=== PATIENT | male | born 1970 | race Caucasian/White ===

== ENCOUNTER 2024-03-01 10:22 | Emergency (ER) | payer MEDICAID ==
[~2024-03-01] VITALS: Ht 185.4 cm; Wt 195.0 kg
[2024-03-01 10:25] VITALS: TEMP 98.8
[2024-03-01] MEDS: normal saline 1000ml 1,000 ML IV ONE ×3 (11:15→12:46)
[2024-03-01 11:26] LABS: BASOPHILS # (AUTO) 0.1 X10'3 (0-0.2); BASOPHILS % (AUTO) 1.4 % (0-1); EOSINOPHILS # (AUTO) 0.1 X10'3 (0-0.9); EOSINOPHILS % (AUTO) 2.6 % (0-6); HEMATOCRIT 45.5 % (42.0-52.0); HEMOGLOBIN 15.8 g/dl (14.0-17.9); LYMPHOCYTES # (AUTO) 1.8 X10'3 (1.1-4.8); LYMPHOCYTES % (AUTO) 33.5 % (21-51); MEAN CORPUSCULAR HEMOGLOBIN 33.4 PG (27.0-31.0); MEAN CORPUSCULAR HGB CONC 34.6 g/dL (33.0-36.5); MEAN CORPUSCULAR VOLUME 96.4 FL (78-98); MEAN PLATELET VOLUME 7.4 FL (7.4-10.4); MONOCYTES # (AUTO) 0.6 X10'3 (0-0.9); NEUTROPHILS # (AUTO) 2.7 X10'3 (1.8-7.7); NEUTROPHILS % (AUTO) 51.5 % (42-75); PLATELET COUNT 270 X10'3 (140-440); RED BLOOD COUNT 4.72 X10'6 (4.70-6.10); RED CELL DISTRIBUTION WIDTH 14.6 % (11.5-14.5); WHITE BLOOD COUNT 5.2 X10'3 (4.5-11.0)
[2024-03-01 11:48] LABS: ALANINE AMINOTRANSFERASE 70 U/L (12-78); ALBUMIN 3.6 G/DL (3.4-5.0); ALBUMIN/GLOBULIN RATIO 0.8 (1.1-1.5); ALKALINE PHOSPHATASE 93 IU/L (46-116); ANION GAP 11 (8-16); ASPARTATE AMINO TRANSFERASE 63 U/L (10-37); BILIRUBIN,TOTAL 0.7 MG/DL (0.1-1.0); BLOOD UREA NITROGEN 16 MG/DL (7-18); BUN/CREATININE RATIO 20.3 (10.0-20.0); CHLORIDE 98 MMOL/L (99-107); CREATININE 0.79 MG/DL (0.60-1.10); GLUCOSE 146 MG/DL (70-104); POTASSIUM 3.6 MMOL/L (3.5-5.1); SODIUM 135 MMOL/L (135-145); TOTAL CARBON DIOXIDE 25.7 MMOL/L (24-32); TOTAL PROTEIN 8.3 G/DL (6.4-8.2); eCRCL 119 ML/MIN; eGFR > 90 ML/MIN
[2024-03-01 12:00] LABS: C-REACTIVE PROTEIN 0.13 MG/DL (0.0-0.5)
[2024-03-01 12:01] LABS: PRO BRAIN NATRIURETIC PEPTIDE < 30 PG/ML (0-125)
[2024-03-01] MEDS: ondansetron/PF 4mg/2ml inj IV ONE (12:39)
[2024-03-01 13:28] LABS: BILIRUBIN,URINE NEGATIVE (Neg); CLARITY,URINE CLEAR (Clear); COLOR,URINE YELLOW (Yellow); GLUCOSE, URINE NEGATIVE (Neg); KETONES,URINE NEGATIVE (Neg); LEUKOCYTE ESTERASE ,URINE NEGATIVE (Neg); NITRITES, URINE NEGATIVE (Neg); OCCULT BLOOD,URINE NEGATIVE (Neg); PH,URINE 6.5 (4.8-8.0); PROTEIN,URINE NEGATIVE (Neg); UROBILINOGEN,URINE 0.2 E.U/dL (0.2-1.0)
[2024-03-01 13:43] LABS: UA COLLECTION TYPE CLN CATCH MIDSTREAM
[2024-03-01] MEDS ORDERED: ONDA-245 PO (13:47)
[2024-03-01 14:00] VITALS: BP 159/106; PULSE 91; RESP 14; O2SAT 99
== END 2024-03-01 14:02 | disposition home or self-care (01) ==
LOC: ER 10:22
DX: B34.9 Viral infection, unspecified (principal); R42 Dizziness and giddiness; R11.0 Nausea; H53.8 Other visual disturbances; Z20.822 Contact with and (suspected) exposure to COVID-19
CPT/HCPCS: 36415; 71045; 80053; 81003; 83605; 83880; 84145; 84484; 85025; 86140; 87040; 87502; 87503; 87811; 93005; 96360; 96361; 99285; J7030

== ENCOUNTER 2024-06-16 15:44 | Emergency (ER) | payer MEDICAID ==
[~2024-06-16] VITALS: Ht 185.4 cm; Wt 88.5 kg
[~2024-06-16 15:44] MED LIST: ONDA-245 PO
[2024-06-16] MEDS ORDERED: AMOX-580 PO (17:15)
[2024-06-16 17:28] VITALS: BP 132/82; PULSE 63; RESP 16; TEMP 99.2; O2SAT 98
== END 2024-06-16 17:30 | disposition home or self-care (01) ==
LOC: ER 15:45
DX: K02.9 Dental caries, unspecified (principal); K04.7 Periapical abscess without sinus; Z79.899 Other long term (current) drug therapy
CPT/HCPCS: 99283

== ENCOUNTER 2024-12-08 19:36 | Emergency (ER) | payer MEDICAID ==
[~2024-12-08] VITALS: Ht 188 cm; Wt 96.0 kg
[2024-12-08 19:57] VITALS: TEMP 98.4
--- NOTE | 2024-12-08 20:13 | Physician Documentation ---
History of Present Illness Chief Complaint: Abdominal Pain w/vomiting Stated Complaint: THROWING UP BLOOD OK to notify your PCP?: Yes Primary Medical Doctor: TERESA BARCLAY Mode of Arrival: POV Exam Limitations: no limitations HPI 53-year-old male presents with abdominal pain and distention with vomiting. He attempted to take antacids and water pills with no relief. He reports that he is unable to take a deep breath due to his abdominal distention. He denies having any diarrhea. He has also been having some sinus pain and congestion. Chief Complaint: Abdominal pain, nausea and vomiting Caveat: None Independent Historians: None History of Present Illness: Patient is a 53-year-old man who comes in complaining of intermittent abdominal pain and distention for one month. He has also had intermittent vomiting. Patient's abdominal pain usually resolves with Tums. Over the last several days the Tums no longer helps and actually makes it worse. He has also been trying milk of magnesia. Pain has gotten worse and that is why he comes in tonight. Patient has not seen his primary care doctor for this who resides in [place]. Patient is here in [place] because his mother and needed assistance. Patient states that his urine has been very dark and that he has been trying to drink a lot of fluids. Review of systems: All systems were reviewed and are negative except for what is indicated in the history of present illness. Past Medical History: None Past Surgical History: None Social History: Drinks a six pack of alcohol a day but has not drank for two days, no other drug use. Smokes tobacco. Medications: Reviewed as documented Nursing Notes Allergies: Reviewed as documented in Nursing Notes Medication Reconciliation Allergies: Coded Allergies: No Known Allergies (Unverified , 12/08/24) Scheduled PRN Ondansetron 8mg ODT (Ondansetron Odt), 1 TAB PO TID PRN for nausea/vomiting Review of Systems All Other Systems at this time: Reviewed and Negative ROS Patient denies any other acute symptoms other than above. All other systems are negative Physical Exam Vital Signs: RN Vital Signs have been reviewed: Yes, Temperature: 98.4, Source: Temporal, Heart Rate: 100, Respiratory Rate: 16, BP: 120/81, Pulse Oximetry: 97, Weight: 95.950 Pulse Oximetry Reflects: adequate oxygenation Physical Exam General Appearance: No distress HEENT: Normal OP, moist oral mucosa, PERRL, EOMI Neck: supple, normal ROM, trachea midline Pulmonary: No respiratory distress, CTA, BS equal Cardiac: RRR, no murmur, rub or gallop, GI: Distended, firm but soft, nontender, dull to percussion, normal bowel sounds, no guarding, no rebound Extremities: normal ROM, no swelling, non-tender Skin: intact, dry, warm, no rashes Neuro: AAOx3, speech is clear, no focal motor weakness Psych: normal affect, good eye contact, no apparent hallucination, normal speech Progress Results/Orders Results/Orders Vital Signs 12/08/24 19:57 Temp 98.4 Pulse 100 Resp 16 B/P (MAP) 120/81 Pulse Ox 97 Medical Decision Making Findings Differential diagnosis includes but is not limited to: Hepatitis, liver failure, gastritis, peptic ulcer, gastric ulcer, duodenitis, bowel obstruction, ascites Chest x-ray, single view, indication: Independent interpretation: Abdominal ultrasound, indication: Abdominal distention Impression: Echogenic liver parenchyma. This may be secondary to steatosis or other diffuse hepatic process. Correlate clinically and with liver function tests. Small amount of ascites. Laboratory data independent interpretation: CBC: Mild leukocytosis of 13. Mild anemia hemoglobin 13.7 CMP: Sodium 133, potassium 3.4, total bilirubin elevated at 3.8, elevated AST 188, normal ALT 40, elevated alk-phos 244 Emergency department course/medical decision-making: Patient presents with abdominal distention, abdominal discomfort and nausea and vomiting. Patient isn't vomiting here. Patient will be given Zofran 4 mg. Patient is thought to have some ascites on exam. This is confirmed with ultrasound. No evidence of acute cholecystitis or GI bleed. Patient does have a mildly elevated lipase of 343. Patient has elevated LFTs consistent with hepatitis. This may be related to his alcohol and hepatitis-C. Patient does not have any admission criteria. Patient does not appear to have any acute medical or surgical emergency. Patient will be referred to his primary care doctor to be referred to a nerve specialist or specialist for his hepatitis. Patient is stable for discharge. All of the above and test results and follow up plan reviewed with the patient. Departure Time of Disposition: 00:18 Disposition: 01 HOME / SELF CARE / HOMELESS Impression: Primary Impression: Hepatitis Additional Impression: Ascites Qualified Codes: R18.8 - Other ascites Condition: Stable Additional Instructions: RECOMMEND YOU FOLLOW UP WITH YOUR PRIMARY CARE DOCTOR IN [place]. YOU WILL NEED REFERRAL TO A SPECIALIST FOR YOUR HEPATITIS. RECOMMEND DISCONTINUING ALL ALCOHOL USE. Prescriptions ONDANSETRON ODT 4mg tablet (ONDANSETRON ODT) 4 Mg Tab.rapdis 1 TAB PO TID PRN for nausea/vomiting, #20 TAB 0 Refills Prov: ALEX RG MD 12/09/24 Education Educated: Patient Educated regarding: diagnosis, treatment, need for follow up Additional Comment Medical Screen Exam This patient recieved a medical screening examination. After reviewing the i ndividual's medical complaints with presenting symptoms and performing an appropriate physical examination, it was determined that no immediate life- threatening emergency medical condition is present. This individual is also not a women having contractions. Signature Scribe Signature: No scribe Attestation: No scribe GLENN MENDOZAP Dec 08, 2024 20:13 ALEX RG MD Dec 08, 2024 21:22
[2024-12-08 21:47] LABS: MEAN PLATELET VOLUME 8.4 FL (7.4-10.4); RED CELL DISTRIBUTION WIDTH 16.4 % (11.5-14.5)
[2024-12-08 22:12] LABS: CREATININE 0.65 MG/DL (0.60-1.10); TOTAL CARBON DIOXIDE 25.9 MMOL/L (24-32); eCRCL 149 ML/MIN; eGFR > 90 ML/MIN
[2024-12-08 23:47] LABS: PRO BRAIN NATRIURETIC PEPTIDE 128 PG/ML (0-125)
--- NOTE | 2024-12-08 23:51 | RADIOLOGY REPORT ---
ULTRASOUND ABDOMEN, LIMITED RIGHT UPPER QUADRANT: REASON FOR EXAM: abdominal distention, pain TECHNIQUE: Real-time sector scans in the transverse and longitudinal planes were obtained through th e right upper quadrant of the abdomen. FINDINGS: The liver is echogenic. The portal vein demonstrates hepatopetal flow. There is no intrahe patic nor extrahepatic biliary ductal dilatation. The common bile duct measures 6 mm. No gallstones or sludge are identified. There is no gallbladder wall thickening nor pericholecystic fluid. There is no sonographic Alcazar's sign. The visualized portion of the pancreas is unremarkable. The right kidney measures 12.2 cm. No hydronephrosis or nephrolithiasis is identified. There is no evidence of right renal mass or cyst. The visualized portions of the abdominal aorta demonstrate no evidence of aneurysmal dilatation. The visualized inferior vena cava is unremarkable. There is a small amount of perihepatic free fluid. IMPRESSION: Echogenic liver parenchyma. This may be secondary to steatosis or other diffuse hepatic process. Co rrelate clinically and with liver function tests. Small amount of ascites.
[2024-12-09] MEDS ORDERED: ONDA-243 PO (00:20)
[2024-12-09] MEDS ORDERED: ondansetron/PF 4mg/2ml inj IV ONE (00:20)
[2024-12-09 00:25] VITALS: BP 134/85; PULSE 86; RESP 16; O2SAT 97
== END 2024-12-09 00:27 | disposition home or self-care (01) ==
LOC: ER 19:36
DX: K75.9 Inflammatory liver disease, unspecified (principal); R18.8 Other ascites
CPT/HCPCS: 36415; 76700; 80053; 83690; 83880; 85025; 99285

== ENCOUNTER 2025-03-17 16:50 | Emergency (ER) | payer MEDICAID ==
[~2025-03-17] VITALS: Ht 185.4 cm; Wt 89.4 kg
[~2025-03-17 16:50] MED LIST changes: +ONDA-243 PO
[2025-03-17 17:33] LABS: UA COLLECTION TYPE CLN CATCH MIDSTREAM
[2025-03-17 17:37] LABS: COARSE GRANULAR CAST 0-3 /LPF (NEGATIVE); MUCUS STRANDS MANY /LPF (Neg); SQUAMOUS EPITHELIAL CELL,UR FEW /LPF (FEW)
[2025-03-17 17:38] LABS: FINE GRANULAR CAST 0-3 /LPF (NEGATIVE)
[2025-03-17 17:40] LABS: MEAN PLATELET VOLUME 7.9 FL (7.4-10.4); RED CELL DISTRIBUTION WIDTH 17.2 % (11.5-14.5)
[2025-03-17 17:51] LABS: CREATININE 0.83 MG/DL (0.60-1.10); TOTAL CARBON DIOXIDE 28.3 MMOL/L (24-32); eCRCL 112 ML/MIN; eGFR > 90 ML/MIN
[2025-03-17] MEDS ORDERED: iohexol 300mg/ml 100ml inj. ONE (21:07)
--- NOTE | 2025-03-17 21:32 | RADIOLOGY REPORT ---
Exam: CT CT ABDOMEN PELVIS W/ IV CONTRAST History: abd pain Comparison Study: None TECHNIQUE: A digital inside sales territory manager image was obtained. During the uneventful, intravenous administration of contrast material, multislice data acquisition was obtained through the abdomen and pelvis. The data set was subsequently reconstructed into multiplanar reformats. RADIATION DOSE: CTDI vol 28.29 mGy. DLP 1652.69 mGy.cm Findings: Lungs: Incompletely assessed moderate left and small right pleural effusion with adjacent opacity. Liver: Unremarkable. Spleen: Unremarkable. Pancreas: Unremarkable. Gallbladder: Distended gallbladder with suggestion of mild wall thickening. Common bile duct is dilated up to 15 mm. Adrenals: Unremarkable Kidneys: Unremarkable. Pelvic Viscera: Unremarkable. Vasculature: Atherosclerotic aortoiliac calcification. Retroperitoneum: Mild retroperitoneal adenopathy measuring up to 14 mm short axis. Moderate abdominopelvic ascites. Mild stranding/ nodularity within the mesentery. Bowel: No bowel obstruction. Musculoskeletal: Unremarkable. Soft tissues: Unremarkable Impression: 1. Distended gallbladder with dilated common bile duct. MRCP is suggested in further assessment. 2. Nonspecific adenopathy as above, neoplastic etiologies cannot be excluded. 3. Moderate abdominopelvic ascites. Incompletely assessed moderate left and small right pleural effusion with adjacent opacity. 4. Stranding/nodularity within the mesentery, possibly on the basis of fluid overload, developing peritoneal carcinomatosis cannot be excluded.
[2025-03-17 22:35] VITALS: BP 121/95; PULSE 92; RESP 18; TEMP 98.1; O2SAT 99
--- NOTE | 2025-03-17 22:51 | Physician Documentation ---
History of Present Illness Chief Complaint: Abdominal Pain Stated Complaint: SOB/ABD PAIN Time Seen by MD: 19:49 OK to notify your PCP?: Yes Primary Medical Doctor: TERESA Arias 54-year-old male who reports to the emergency department for evaluation of abdominal pain x3 days. Patient reports that his abdominal pain has been accompanied by abdominal distention nausea and vomiting x3 days. Patient reports he has been unable to even bend over to tie his shoes during that time. Patient reports he has been unable to keep down fluids or food in the last 3 days. Patient reports that he has a history of alcoholism recently relapsed for brief period of time just prior to his abdomen becoming distended and developing the nausea vomiting diarrhea. Patient denies any fever chills chest pain shortness of breath lightheadedness or any other symptoms at this time. Medication Reconciliation Allergies: Coded Allergies: No Known Allergies (Unverified , 12/08/24) Scheduled PRN ONDANSETRON ODT 4mg tablet (Ondansetron Odt), 1 TAB PO TID PRN for na usea/vomiting Ondansetron 8mg ODT (Ondansetron Odt), 1 TAB PO TID PRN for nausea/vomiting Past Medical History Smoking Status: Current every day smoker Physical Exam Vital Signs: Temperature: 98.1, Source: Oral, Heart Rate: 92, Respiratory Rate: 18, BP: 121/95, Pulse Oximetry: 99, Weight: 89.400 Oxygen Flow Rate: 0 Progress Results/Orders Results/Orders Completed Orders - [facility] Iohexol 300mg/Ml 100ml Inj. (Omnipaque-3 (03/17/25 21:07) Vital Signs 03/17/25 03/17/25 03/17/25 03/17/25 16:56 20:30 20:50 21:29 Temp 98.2 Pulse 112 89 88 Resp 16 18 18 16 B/P (MAP) 132/87 105/77 (86) 107/70 (82) Pulse Ox 95 98 98 O2 Flow Rate 0 03/17/25 22:35 Temp 98.1 Pulse 92 Resp 18 B/P (MAP) 121/95 Pulse Ox 99 Laboratory Tests Test 03/17/25 17:00 03/17/25 17:28 Urine Specimen Description Cln catch midstream Urine Color [place] Urine Clarity Cloudy Urine pH Urine Specific [place] Urine Protein Urine Glucose (UA) Urine Ketones Urine Occult Blood Urine Nitrite Urine Bilirubin Urine Urobilinogen Urine Leukocyte Esterase Urine RBC 50-100 Urine WBC 5-10 H Urine Squamous Epithelial Cells Few Urine Bacteria Few Urine Fine Granular Casts 0-3 Urine Coarse Granular Casts 0-3 Urine Mucus Many Urine Culture Indicated Indicated Volume Urine Centrifuged 10 ml Urine Comment See note White Blood Count 9.1 Red Blood Count 3.30 L Hemoglobin 11.7 L Hematocrit 33.6 L Mean Corpuscular Volume 101.8 H Mean Corpuscular Hemoglobin 35.5 H Mean Corpuscular Hemoglobin Concent 34.9 Red Cell Distribution Width 17.2 H Platelet Count 144 Mean Platelet Volume 7.9 Neutrophils (%) (Auto) 66.4 Lymphocytes (%) (Auto) 25.4 Monocytes (%) (Auto) 6.6 Eosinophils (%) (Auto) 0.6 Basophils (%) (Auto) 1.0 Neutrophils # (Auto) 6.0 Lymphocytes # (Auto) 2.3 Monocytes # (Auto) 0.6 Eosinophils # (Auto) 0.1 Basophils # (Auto) 0.1 CBC Comment Sodium Level 138 Potassium Level 3.6 Chloride Level 104 Carbon Dioxide Level 28.3 Anion Gap 6 L Blood Urea Nitrogen 5 L Creatinine 0.83 Estimated GFR/1.73 m2 > 90 BUN/Creatinine Ratio 6.0 L Glucose Level 110 H Calcium Level 8.0 L Total Bilirubin 7.7 H Aspartate Amino Transf (AST/SGOT) 101 H Alanine Aminotransferase (ALT/SGPT) 27 Alkaline Phosphatase 160 H Total Protein 8.1 Albumin 1.8 L Globulin 6.3 H Albumin/Globulin Ratio 0.3 L Lipase 60 Chemistry Comments Microbiology Date/Time Source Procedure Growth Status 03/17/25 17:38 Urine Clean Catch Midstream Urine Culture - Preliminary Culture received. Resulted Medical Decision Making Additional information obtaine: other Findings 54-year-old male with a history of alcohol use disorder presented with 3 days of worsening abdominal pain, distention, nausea, and vomiting, unable to tolerate oral intake. No fever, chills, chest pain, or shortness of breath. CT abdomen/pelvis findings: Distended gallbladder with dilated common bile duct, suggestive of possible acute cholecystitis with biliary obstruction. Moderate abdominopelvic ascites. Mild retroperitoneal adenopathy (up to 14 mm). Mild stranding/nodularity within the mesentery. No bowel obstruction. Laboratory values consistent with decompensated liver disease and possible biliary obstruction. Assessment: Acute cholecystitis with possible common bile duct obstruction, a surgical emergency requiring prompt intervention. Moderate ascites, likely secondary to decompensated cirrhosis; diagnostic paracentesis indicated to rule out spontaneous bacterial peritonitis. Retroperitoneal adenopathy and mesenteric changes; neoplastic etiologies cannot be excluded. Interventions discussed: Urgent surgical and gastroenterology consultation for cholecystitis with biliary obstruction and decompensated cirrhosis. NPO status, IV fluids, empiric antibiotics, and pain control for acute cholecystitis. Diagnostic paracentesis for new-onset or symptomatic ascites. Alcohol cessation and referral to addiction services. Education regarding warning signs: fever, worsening pain, jaundice, confusion, GI bleeding, or inability to tolerate fluids/food. Risks of leaving AMA: High risk for rapid clinical deterioration, including sepsis, biliary peritonitis, hepatic encephalopathy, renal failure, and if acute cholecystitis with obstruction and decompensated cirrhosis are not promptly treated. Patient was counseled extensively regarding the need for urgent intervention, the risks of non-treatment, and the importance of close follow-up. Patient left against medical advice prior to the implementation of any discussed interventions. Strongly advised to seek immediate care for any worsening symptoms. Outpatient follow-up with primary care, gastroenterology, and surgery is essential. Patient verbalized understanding of risks and recommendations, but elected to leave AMA. Patient's laboratory values also show findings for a UTI at this time. Discussed this with patient. Patient leaving AMA prior to any interventions being implemented. Discussed the risks of the patient leaving AMA. Reports that he understands the risks at this time. Differential Dx:Considerations: AAA, Aortic dissection, Appendicitis, Cholangitis, Cholelithasis, Constipation, Diverticular disease, Gastritis/PUD, Gastroenteritis, GI hemorrhage, Inflammatory BD, Ischemic bowel, Pancreatitis, Urinary tract infection, Other Departure Disposition: 07 LEFT AGAINST MEDICAL ADVICE Impression: Primary Impression: Abdominal pain Condition: Stable Discharge Instructions: Abdominal Pain (Nonspecific) Additional Instructions: You are leaving the hospital before your medical care is complete. You have been diagnosed with the following conditions that require urgent medical attention: Acute abdominal pain with findings concerning for possible cholecystitis (infection/inflammation of the gallbladder) and obstruction of the common bile duct. Moderate ascites (fluid buildup in the abdomen), likely related to liver disease. History of alcohol use disorder with recent relapse, which increases your risk for complications. What you need to know: These conditions can be life-threatening if not treated promptly. Possible complications include severe infection (such as sepsis or spontaneous bacterial peritonitis), worsening liver failure, kidney injury, confusion, bleeding, and even . You may need urgent surgery or procedures to treat these problems. Leaving the hospital now means you are at higher risk for serious complications and readmission. What to watch for: Return to the emergency department immediately if you develop: Fever or chills Worsening abdominal pain or swelling Vomiting that will not stop Yellowing of the skin or eyes (jaundice) Confusion or trouble thinking clearly Blood in your stool or vomit Difficulty breathing What you can do: Try to avoid alcohol and follow a low-sodium diet if possible. If you are able, arrange follow-up with your primary care doctor, a liver specialist (child support officer), and a surgeon as soon as possible. If you were prescribed any medications, take them as directed. If you have questions or need help, contact your healthcare provider or return to the hospital. Education and understanding: The risks of leaving AMA, including the possibility of rapid worsening and , have been explained to you in detail. You have been given the opportunity to ask questions and have indicated that you understand these risks. You are making the decision to leave the hospital at this time. Respect and support: Your decision is respected, and you will not be judged or stigmatized for leaving AMA. You are encouraged to seek care if your symptoms worsen or if you change your mind. Please keep this information and bring it with you if you seek care elsewhere. Referrals: NO PRIMARY CARE PROVIDER (PCP) Education Educated: Patient Educated regarding: diagnosis, treatment, need for follow up Signature Scribe Signature: A Attestation: Scribed for [facility] by NOHEMI Hernandez . 03/17/25 22:59 [facility] Mar 17, 2025 22:51
[2025-03-18] MEDS ORDERED: BUPR128S IM (17:21)
== END 2025-03-17 23:04 | disposition left against medical advice (07) ==
LOC: ER 16:51
DX: R10.9 Unspecified abdominal pain (principal); F17.200 Nicotine dependence, unspecified, uncomplicated; F10.20 Alcohol dependence, uncomplicated; Y90.9 Presence of alcohol in blood, level not specified
CPT/HCPCS: 36415; 74177; 80053; 81001; 83690; 85025; 87088; 99285; Q9967

== ENCOUNTER 2025-03-18 11:35 | Inpatient (IN) | payer MEDICAID ==
[~2025-03-18] VITALS: Ht 185.4 cm; Wt 90.9 kg
[2025-03-18 12:16] LABS: LEUKOCYTE ESTERASE ,URINE NEGATIVE (Neg); OCCULT BLOOD,URINE LARGE (Neg); UA COLLECTION TYPE CLN CATCH MIDSTREAM
[2025-03-18 12:17] LABS: NITRITES, URINE NEGATIVE (Neg)
[2025-03-18 12:24] LABS: COARSE GRANULAR CAST 0-3 /LPF (NEGATIVE); FINE GRANULAR CAST 0-3 /LPF (NEGATIVE); MUCUS STRANDS NONE SEEN /LPF (Neg); SQUAMOUS EPITHELIAL CELL,UR NONE SEEN /LPF (FEW)
[2025-03-18 12:35] LABS: CREATININE 0.76 MG/DL (0.60-1.10); TOTAL CARBON DIOXIDE 25.4 MMOL/L (24-32); eCRCL 123 ML/MIN; eGFR > 90 ML/MIN
[2025-03-18 12:58] LABS: MEAN PLATELET VOLUME 8.1 FL (7.4-10.4); RED CELL DISTRIBUTION WIDTH 17.0 % (11.5-14.5)
--- NOTE | 2025-03-18 13:31 | Physician Documentation ---
History of Present Illness Chief Complaint: Abdominal Pain Stated Complaint: ABD PAIN Time Seen by MD: 12:52 Primary Medical Doctor: TERESA BARCLAY [facility] 54-year-old male patient who was seen here in the ED yesterday for three days of abdominal pain returns after leaving against medical advice yesterday he has that he left yesterday because they were going to transfer him to another hospit al out of the area. he complains of abdominal distention nausea vomiting x3 days. Patient does have a history of alcoholism and complains of a distended abdomen. States he has not been diagnosed with liver failure or ever had a paracentesis. Yesterday CT indicated that Distended gallbladder with dilated common bile duct. MRCP is suggested in further assessment. Day of Onset: Mar 18, 2025 Medication Reconciliation Allergies: Coded Allergies: No Known Allergies (Unverified , 12/08/24) Miscellaneous Medications Buprenorphine (Brixadi), 128 IM, (Reported) Discontinued Medications ONDANSETRON ODT 4mg tablet (Ondansetron Odt), 1 TAB PO TID PRN for nausea/vomiting Discontinued Reason: patient no longer taking Ondansetron 8mg ODT (Ondansetron Odt), 1 TAB PO TID PRN for nausea/vomiting Discontinued Reason: patient no longer taking Review of Systems All Other Systems at this time: Reviewed and Negative ROS As stated above in the HPI, otherwise all systems are reviewed and negative. Physical Exam Vital Signs: Temperature: 99.4, Source: Oral, Heart Rate: 126, Respiratory Rate: 20, BP: 110/73, Pulse Oximetry: 96, Weight: 90.910 Oxygen Flow Rate: 0 Physical Exam General: Alert, no apparent distress. Gastrointestinal: Soft, tender and distended Extremities: Normal range of motion, no deformity. Neurologic: Oriented x4. Psychiatric: Normal mood and affect. Skin: Normal color, warm and dry. No edema, no ecchymosis. Progress Results/Orders Results/Orders Vital Signs 03/18/25 11:37 Temp 99.4 Pulse 126 Resp 20 B/P (MAP) 110/73 Pulse Ox 96 O2 Flow Rate 0 Laboratory Tests Test 03/18/25 11:14 03/18/25 12:10 03/18/25 12:33 Urine Specimen Description Cln catch midstream Urine Color [place] Urine Clarity Slightly cloudy Urine pH 6.5 Urine Specific [place] 1.020 Urine Protein >=300 H Urine Glucose (UA) 100 H Urine Ketones 15 H Urine Occult Blood Large H Urine Nitrite Negative Urine Bilirubin Large Urine Urobilinogen >=8.0 H Urine Leukocyte Esterase Negative Urine RBC 20-50 Urine WBC 5-10 H Urine Squamous Epithelial Cells None seen Urine Bacteria Few Urine Fine Granular Casts 0-3 Urine Coarse Granular Casts 0-3 Urine Mucus None seen Urine Culture Indicated Indicated Volume Urine Centrifuged 2 ml Urine Comment Low volume CBC Comment Sodium Level 138 Potassium Level 3.8 Chloride Level 104 Carbon Dioxide Level 25.4 Anion Gap 9 Blood Urea Nitrogen 6 L Creatinine 0.76 Estimated GFR/1.73 m2 > 90 BUN/Creatinine Ratio 7.9 L Glucose Level 97 Calcium Level 7.8 L Total Bilirubin 4.7 H Aspartate Amino Transf (AST/SGOT) 86 H Alanine Aminotransferase (ALT/SGPT) 24 Alkaline Phosphatase 173 H Total Protein 7.7 Albumin 1.8 L Globulin 5.9 H Albumin/Globulin Ratio 0.3 L Lipase 70 Chemistry Comments White Blood Count 6.6 Red Blood Count 2.76 L Hemoglobin 9.9 L Hematocrit 28.4 L Mean Corpuscular Volume 103.1 H Mean Corpuscular Hemoglobin 35.8 H Mean Corpuscular Hemoglobin Concent 34.7 Red Cell Distribution Width 17.0 H Platelet Count 113 L Mean Platelet Volume 8.1 Neutrophils (%) (Auto) 68.7 Lymphocytes (%) (Auto) 19.0 L Monocytes (%) (Auto) 9.5 Eosinophils (%) (Auto) 1.5 Basophils (%) (Auto) 1.3 H Neutrophils # (Auto) 4.5 Lymphocytes # (Auto) 1.3 Monocytes # (Auto) 0.6 Eosinophils # (Auto) 0.1 Basophils # (Auto) 0.1 Microbiology Date/Time Source Procedure Growth Status 03/18/25 12:26 Urine Clean Catch Midstream Urine Culture - Preliminary Culture received. Resulted Medical Decision Making Additional information obtaine: N/A Findings Patient has been sitting in the ER for an extended period of time. This is primarily due to the MRCP not being completed. It is 18 12 currently hand the MRCP was ordered just after 1300 today. Differential Dx:Considerations: Cholelithasis, Esophageal rupture, Gastroenteritis, Pancreatitis, Urinary tract infection Departure Disposition: HOME / SELF CARE / HOMELESS Impression: Primary Impression: Abdominal pain Referrals: NO PRIMARY CARE PROVIDER (PCP) Signature Scribe Signature: f Attestation: Scribed for [facility] Asst by New Hickey NP . 03/18/25 14:00 NEW LAINEZ NP Mar 18, 2025 13:31
[2025-03-18] MEDS ORDERED: BUPR128S IM (17:21)
--- NOTE | 2025-03-18 20:30 | RADIOLOGY REPORT ---
CLINICAL HISTORY: biliary obstruction TECHNIQUE: MRI and MRCP of the abdomen was performed without gadolinium. 3D reconstructed images were created under concurrent radiologist supervision and archived on the PACS system. COMPARISON: CT CT ABDOMEN PELVIS W/ IV CONTRAST on DOS: 03/17/25, US ULTRASOUND OF ABDOMEN on DOS: 12/08/24 FINDINGS: Evaluation is clearly limited due to image degradation secondary to patient motion. The spleen, adrenal glands, liver, and pancreas are grossly unremarkable. Gallbladder is distended with moderate wall thickening. The CBD is dilated, measuring 8 mm. No definite intraductal filling defects to suggest a stone is seen. There is a moderate amount of ascites. The abdominal is normal course and caliber. No enlarged lymph node is seen. There are small to moderate left and small right pleural effusions. IMPRESSION: Clearly limited exam. Distended bladder with moderate wall thickening. Dilated 8 mm common duct. No definite intraductal filling defects to suggest a stone. Moderate ascites. Small to moderate left and small right pleural effusion
[2025-03-19] VITALS (8 sets, daily range): BP systolic 108–126; BP diastolic 64–73; PULSE 79–87; RESP 12–18; TEMP 97–98.3; O2SAT 91–94
[2025-03-19 08:24] LABS: MEAN PLATELET VOLUME 7.9 FL (7.4-10.4); RED CELL DISTRIBUTION WIDTH 17.0 % (11.5-14.5)
[2025-03-19 08:26] LABS: CREATININE 0.70 MG/DL (0.60-1.10); TOTAL CARBON DIOXIDE 31.0 MMOL/L (24-32); eCRCL 133 ML/MIN; eGFR > 90 ML/MIN
[2025-03-19] MEDS ORDERED: ondansetron/PF 4mg/2ml inj IV PRN (13:30)
[2025-03-19] MEDS ORDERED: magnesium sulf-water 4G/100mL 100 ML IV PRN (13:30)
[2025-03-19] MEDS ORDERED: potassium Cl 20 mEq SR tablet PO PRN ×2 (13:30)
[2025-03-19] MEDS ORDERED: magnesium sulf-water 2g/50mL 50 ML IV PRN (13:30)
[2025-03-19] MEDS ORDERED: magnesium Cl slow-release 64mg tablet PO PRN (13:30)
[2025-03-19] MEDS ORDERED: mag hydrox/Alum hydrox/simeth 30ml oral suspension PO PRN (13:30)
[2025-03-19] MEDS ORDERED: potassium Cl 40MEQ/1/2NS 520ml 520 ML IV PRN (13:30)
[2025-03-19] MEDS: HYDROmorphone/PF 0.2 MG/ML SYRINGE IV PRN (14:16)
[2025-03-19] MEDS: nicotine 14mg patch - 24hr TD SCH (14:16)
[2025-03-19 16:17] LABS: LEUKOCYTE ESTERASE ,URINE NEGATIVE (Neg); OCCULT BLOOD,URINE LARGE (Neg)
[2025-03-19 16:21] LABS: LDL CHOLESTEROL 56 MG/DL (50-100)
[2025-03-19 16:22] LABS: NITRITES, URINE NEGATIVE (Neg); UA COLLECTION TYPE CLN CATCH MIDSTREAM
[2025-03-19 16:25] LABS: AMORPHOUS PHOSPHATES 1+; MUCUS STRANDS NONE SEEN /LPF (Neg); SQUAMOUS EPITHELIAL CELL,UR FEW /LPF (FEW)
[2025-03-19 16:26] LABS: CELLULAR CAST 0-4 /LPF (NEGATIVE); COARSE GRANULAR CAST 0-3 /LPF (NEGATIVE); FINE GRANULAR CAST 0-3 /LPF (NEGATIVE)
[2025-03-19 16:28] LABS: CHOL/HDL RATIO 4.3 (0.00-4.99)
[2025-03-19 16:28] LABS: CREATININE,URINE RANDOM 319.0 MG/DL; UA UREA RANDOM 898.0 MG/DL; URINE AMPHETAMINE SCREEN NEGATIVE (Neg); URINE BARBITUATE SCREEN NEGATIVE (Neg); URINE BENZODIAZEPINES SCREEN NEGATIVE (Neg); URINE CANNABINOID SCREEN POSITIVE (Neg); URINE COCAINE SCREEN NEGATIVE (Neg); URINE METHADONE SCREEN NEGATIVE (Neg); URINE OPIATE SCREEN NEGATIVE (Neg); URINE PHENCYCLIDINE SCREEN NEGATIVE (Neg)
[2025-03-19 16:33] LABS: OSMOLALITY UA 688.0 MOSM/K (50-1400)
--- NOTE | 2025-03-19 16:50 | RADIOLOGY REPORT ---
ULTRASOUND ABDOMEN, LIMITED RIGHT UPPER QUADRANT: REASON FOR EXAM: Abdominal distention. COMPARISON: Abdominal ultrasound 12/08/2024. MRCP 03/18/2025. TECHNIQUE: Real-time sector scans in the transverse and longitudinal planes were obtained through the right upper quadrant of the abdomen. FINDINGS: The liver is diffusely echogenic. The liver surface appears mildly nodular. There is no intrahepatic biliary ductal dilatation. The portal vein is not well seen on the current study. The common bile duct measures 11 mm. The gallbladder is not as well distended on the current study and the gallbladder das appear somewhat irregular. There is a small amount of echogenic sludge within the gallbladder. There is no sonographic Alcazar's sign. The pancreas is obscured by bowel gas. The right kidney measures 11.1 cm. No hydronephrosis or nephrolithiasis is identified. There is no evidence of right renal mass or cyst. The visualized portions of the abdominal aorta demonstrate no evidence of aneurysmal dilatation. The visualized inferior vena cava is unremarkable. There is a small amount of ascites. There is a right pleural effusion. IMPRESSION: Echogenic liver with mildly nodular surface suggestive of cirrhosis. Small amount of ascites. The common bile duct measures 11 mm on the current study, significantly increased since the prior ultrasound but similar in size to the MRCP.
--- NOTE | 2025-03-19 17:17 | HISTORY AND PHYSICAL-Residence ---
History & Physical Providers to CC Resident Creating Document: TOMMYSHALOMYUNIERABDIFATAH CASON ~ History of Present Illness Primary Medical Doctor: TERESA BARCLAY Reason for Admit\Complaint: Abdominal Pain History of Present Illness This is a 54-year-old male with past medical history of hepatitis-C,, COPD presented in ER with a complaint of abdominal pain on and off for the past three weeks. Patient reports that the pain is diffuse in the lower abdomen, sharp, rated 8/10 in intensity, nonradiating and worsens with movement. In addition to that he also reports vomiting of greenish yellow fluid about four to 5 times a week bowel movements are regular.He reports he tried tums, baking soda and pepcid which did not help. He also feels fluid in the abdomen and his diet is decreased for the past 3 weeks because of vomitting. He never had EGD, colonoscopy and paracentesis. Apart from that he also complains of exertional shortness of breath for the past three weeks occurring intermittently lasting approximately 5 minutes. Allergies: Coded Allergies: No Known Allergies (Unverified , 12/08/24) Home Medications Home Medications Active Reported Brixadi (Buprenorphine) 128 Mg/0.36 Ml Arianna.syr 128 IM Past Medical History Past Medical History COPD Hepatitis-C Past Surgical History Surgical History Comment Operation of left elbow Family History Family History: FH: diabetes mellitus Past Social History Social History Comment Smokes cigarettes pack a day since age 10 Drinks 12 beers in a month since age 12 Smokes marijuana about 60 times in a month since age 12. And lives alone in home. Works as a [employer] worker Dr. Roberts is pcp. KIERA QURESHI Review of System Constitutional: No fever, chills, dizziness, weight gain or loss Eyes: No pain, erythema, discharge, blurring of vision ENT: No sore throat, epistaxis, tinnitus Cardiovascular: reports Shortness of breath. Chest pressure, chest discomfort, palpitations, syncope, lower extremity edema, paroxysmal nocturnal dyspnea Respiratory: Shortness of breath and cough present, No hemoptysis Gastrointestinal: dec apetite, vomitting and nausea, no diarrhea, constipation, hematemesis, abdominal pain, bloating, melena or fresh blood Lower abdominal pain diffuse Musculoskeletal:no joint pain, no deformities Integumentary: No change in skin, hair, nails. No swelling, bruising, abrasions Neurologic: No headache, neck pain, numbness or tingling of the extremities, weakness Psychiatric: No delusions, depression, loss of interest in normal activity or change in sleep pattern, hallucinations, suicidal ideations Endocrine: No fatigue, weakness, polydipsia, polyuria, change in appetite, heat or cold intolerance, sweating, dry skin Hematological: No bleeding, petechiae, bruising Exam Vitals: Vital Signs Date Time Temp Pulse Resp B/P (MAP) Pulse Ox O2 Delivery O2 Flow Rate FiO2 03/19/25 15:45 16 03/19/25 15:35 97.9 81 126/71 (89) 93 Room Air 03/19/25 07:11 0 General: General: awake, alert oriented to place, time, and person HEENT: No pallor present, no icterus, moist mucous membranes Neck: No masses and tenderness Resp: Unlabored. Lungs clear to auscultation bilaterally. Chest: Normal expansion. Cardiovascular: Regular Rate and rhythm, normal S1 and S2 without murmur, rub or gallop Abdomen: Soft and diffusely tender lower abdomen, no organomegaly, no guarding and rigidity, bowel sounds present Neuro: No focal weakness in the upper and lower limb muscles, power of the muscles 5/5 bilateral upper and lower extremities, normal reflexes bilaterally. Cranial nerves intact Extremities: No cyanosis,clubbing or edema Skin: Warm and Dry. No lesions Psych: Normal affect Diagnostic Data Last Recorded Lab Results: 03/19/25 0750 03/19/25 0750 Advance Care Planning Advanced Care plannin - 30 Minutes (I spent 17 minutes in discussing various resuscitative measures with the patient chose to be full code) Additional Plan Chronic liver disease/Cirrhosis/Acute Decompensated Liver Disease Ascites AST 6,ALT 22 AST/ALT highly suggestive alcohol induced liver injury MRCP revealed Dilated 8 mm common duct. No definite intraductal filling defects to suggest a stone,Moderate ascites. Bilirubin initially 4.7, trending downward to 3.9, elevated alkaline phosphatase Bilirubin and alkaline phosphatase levels trending downward. ESR, CRP elevated and WBC count normal. Follow up with CT Scan abdomen/pelvis Consulted ICU Ordered paracentesis, follow up with peritoneal fluid results. Started patient on furosemide 40 mg IV and Aldactone 100 mg p.o. Thrombocytopenia Secondary to Alcohol Use/Liver Disease Platelets 105 Follow up with CBC, monitor signs for bleeding COPD not in acute excerabation Patient does not take anything at home for COPD. DuoNebs q.4 PRN Macrocytic anemia Secondary to Alcohol Use MCV 101.6 HGB 9.4 HCT 27.2 Follow up with CBC and vitamin B12 Asymptomatic UTI No treament required Tobacco use disorder Nicotine patch in place Substance use navigator consulted Code Status: Full Code DVT prophylaxis: lovenox GI Prophylaxis: Pantoprazole 40 mg IV Yunier Dozier PGY 1 Date of Service: Mar 19, 2025 Billing Provider: DOUGIE FRIEDMAN MD Common Visit Codes: [id number] INP/OBS CARE (HIGH) Secondary Visit Codes: [id number] CARE PLAN 30 MINUTES YUNIER DOZIER, RES Mar 19, 2025 17:17 DOUGIE FRIEDMAN MD Mar 20, 2025 06:39
[2025-03-19] MEDS: K and/or MAG REPLACEMENT MC SCH (19:55)
[2025-03-19] MEDS: docusate sod 100mg capsule PO SCH (20:11)
[2025-03-20] VITALS (12 sets, daily range): BP systolic 86–132; BP diastolic 44–83; PULSE 79–100; RESP 14–18; TEMP 97.2–98.2; O2SAT 92–98
[2025-03-20] MEDS: HYDROcodone/acetaminophen 5mg/325mg tablet PO PRN (05:25)
[2025-03-20 07:03] LABS: MEAN PLATELET VOLUME 8.1 FL (7.4-10.4); RED CELL DISTRIBUTION WIDTH 17.2 % (11.5-14.5)
[2025-03-20 07:38] LABS: CREATININE 0.69 MG/DL (0.60-1.10); TOTAL CARBON DIOXIDE 29.2 MMOL/L (24-32); eCRCL 135 ML/MIN; eGFR > 90 ML/MIN
[2025-03-20 07:46] LABS: PHOSPHORUS 2.8 MG/DL (2.3-4.5)
[2025-03-20] MEDS: enoxaparin 40mg/0.4ml syringe SUBCUT SCH (08:00)
[2025-03-20 10:22] LABS: APTT 35 SECONDS (22-32); INR 2.3 INR
--- NOTE | 2025-03-20 11:47 | RADIOLOGY REPORT ---
PROCEDURE: ULTRASOUND GUIDED PARACENTESIS HISTORY: 54 Male requiring paracentesis. TECHNIQUE: The risks and benefits of the procedure including but not limited to bleeding, infection and injury to abdominal organs were explained to the patient and written informed consent was obtained. Trace ascites IMPRESSION: Trace ascites
[2025-03-20 12:03] LABS: LACTIC SEPSIS 0.9 MMOL/L (0.4-2.0)
--- NOTE | 2025-03-20 13:41 | RADIOLOGY REPORT ---
Exam: CT CT ABDOMEN PELVIS History: ABDOMEN DISTNEDED Comparison Study: CT CT ABDOMEN PELVIS W/ IV CONTRAST on DOS: 03/17/25 TECHNIQUE: Multidetector CT of the abdomen AND PELVIS without IV contrast. Axial, coronal and sagittal multiplanar reformats were obtained from the axial data set by the technologist. Radiation Dose Information: CT Dose: CTDI volume is 27.72 mGy. Dose-length product is 1350.95 mGy*cm FINDINGS: Moderate right with Moderate to large left-sided pleural effusions and associated atelectasis. Partially visualized heart is normal in size. Trace pericardial effusion. Moderate to large ascites. No pneumoperitoneum. Liver, spleen, pancreas and adrenal glands are unremarkable. Significant distention of the gallbladder with possible sludge within the gallbladder. No gallbladder wall thickening. Dilatation of the common bile duct up to 13 mm. Kidneys, ureters and urinary bladder unremarkable. Prostate is normal size with calcifications. Stomach is unremarkable. Small bowel loops unremarkable. Appendix is not definitely visualized. Small to moderate amount of fecal material within the colon. Rectal wall thickening. No evidence of aortic aneurysm. Minimal atherosclerotic calcification of the aorta. Slightly prominent mesenteric lymph nodes measuring up to 1.2 cm. Small fat containing bilateral inguinal hernias. Minimal body wall edema. No evidence of acute osseous abnormalities. IMPRESSION: Moderate to large ascites. Distention of the gallbladder with possible sludge within the gallbladder and dilatation of the common bile duct up to 13 mm; unchanged from prior imaging. Rectal wall thickening. Correlate for proctitis. Prominent mesenteric lymph nodes which may be reactive or neoplastic. Minimal body wall edema. Moderate right with Moderate to large left-sided pleural effusions and associated atelectasis.
--- NOTE | 2025-03-20 18:12 | PROGRESS NOTE- Residence ---
Progress Note - Resident Providers to CC Resident Creating Document: JULI SANDERS RES ~ Antibiotic Timeout Antibiotic Ordered?: No Subjective Patient was seen and examined on bedside, he he reports he feel fluid in the belly,He is refusing IV line, oxygen satturated dropped on room air, patient is currently maintaing oxygen satt on 2 L NC. Objective Vital Signs Date Time Temp Pulse Resp B/P (MAP) Pulse Ox O2 Delivery O2 Flow Rate FiO2 03/20/25 15:35 94 Nasal Cannula* 2 28 03/20/25 15:00 97.4 87 18 102/68 (79) Result Diagram: 03/20/25 0634 03/20/25 0634 General: awake, alert oriented to place, time, and person HEENT: No pallor present, no icterus, moist mucous membranes Neck: No masses and tenderness Resp: Unlabored. Lungs clear to auscultation bilaterally. Chest: Normal expansion. Cardiovascular: Regular Rate and rhythm, normal S1 and S2 without murmur, rub or gallop Abdomen: Soft and distended, mildly tender in lower abdomen, no organomegaly, no guarding and rigidity, bowel sounds present Neuro: No focal weakness in the upper and lower limb muscles, power of the muscles 5/5 bilateral upper and lower extremities, normal reflexes bilaterally. Cranial nerves intact Extremities: No cyanosis,clubbing or edema Skin: Warm and Dry. Psych: Normal affect Coagulation Studies Laboratory Tests Test 03/20/25 09:38 Prothrombin Time 22.0 SECONDS (9.0-12.0) H INR International Normalized Ratio 2.3 INR Activated Partial Thromboplast Time 35 SECONDS (22-32) H Coagulation Comments Advance Care Planning Advanced Care plannin - 30 Minutes Plan Plan This is 54 year old male,admitted in view of abdominal pain. Chronic liver disease/Cirrhosis/Acute Decompensated Liver Disease Ascites AST 6,ALT 22 AST/ALT highly suggestive alcohol induced liver injury MRCP revealed Dilated 8 mm common duct. No definite intraductal filling defects to suggest a stone,Moderate ascites. Bilirubin initially 4.7, trending downward to 3.9, elevated alkaline phosphatase Bilirubin and alkaline phosphatase levels trending downward. ESR, CRP elevated and WBC count normal. Follow up with CT Scan abdomen/pelvis Consulted ICU Ordered paracentesis, follow up with peritoneal fluid results. Started patient on furosemide 40 mg IV and Aldactone 100 mg p.o. 03/20/25 CT Abd/Pelvis showed IMPRESSION: Moderate to large ascites. Distention of the gallbladder with possible sludge within the gallbladder and dilatation of the common bile duct up to 13 mm; unchanged from prior imaging. Prominent mesenteric lymph nodes which may be reactive or neoplastic. Moderate right with Moderate to large left-sided pleural effusions and associated atelectasis. Patient need to follow up outpatient for gallbladder, currently he is asymptomatic. Patient underwent U/S bedside, it showed trace ascites. was consulted who recommended to monitor liver enzymes, no further imaging. Thrombocytopenia Secondary to Alcohol Use/Liver Disease Platelets 105 Follow up with CBC, monitor signs for bleeding 03/20/30 Platelet dropped to 94, in view of this helded lovenox Follow up with CMP. COPD not in acute excerabation Patient does not take anything at home for COPD. DuoNebs q.4 PRN Macrocytic anemia Secondary to Alcohol Use MCV 101.6 HGB 9.4 HCT 27.2 Follow up with CBC and vitamin B12 Asymptomatic UTI No treament required Tobacco use disorder Alcohol Use Disorder Nicotine patch in place Substance use navigator consulted Code Status: Full Code Dvt Prophylaxis: SCD GI Prophylaxis: Pantoprazole 40 mg PO Diet: Sodium Restricted diet. Disposition: Continue to monitor patient, patient is refusing IV line, possbile discharge tomorrow if he remain stable, patient will need to follow outpatient with Gastroenterlogist. Date of Service: Mar 20, 2025 Billing Provider: EMMIE SUAREZ MD Common Visit Codes: [id number] INP/OBS CARE(HIGH) JULI SANDERS, RES Mar 20, 2025 18:12 EMMIE SUAREZ MD Mar 20, 2025 19:53
[2025-03-20] MEDS: magnesium hydroxide 30ml (MOM) UD suspension PO PRN (19:56)
[2025-03-21] VITALS (9 sets, daily range): BP systolic 91–116; BP diastolic 54–74; PULSE 73–90; RESP 11–20; TEMP 97.2–98.1; O2SAT 92–96
[2025-03-21 06:45] LABS: MEAN PLATELET VOLUME 8.3 FL (7.4-10.4); RED CELL DISTRIBUTION WIDTH 16.8 % (11.5-14.5)
[2025-03-21 06:51] LABS: APTT 34 SECONDS (22-32); INR 2.2 INR
[2025-03-21 07:05] LABS: CREATININE 0.73 MG/DL (0.60-1.10); TOTAL CARBON DIOXIDE 31.0 MMOL/L (24-32); eCRCL 128 ML/MIN; eGFR > 90 ML/MIN
[2025-03-21 07:11] LABS: PHOSPHORUS 2.5 MG/DL (2.3-4.5)
[2025-03-21] MEDS: pantoprazole 40mg Tablet.DR PO SCH (08:22)
[2025-03-21] MEDS: lactulose 20gm/30ml cup PO SCH (09:12)
--- NOTE | 2025-03-21 10:08 | DISCHARGE SUMMARY-Residence ---
Discharge Summary Providers to CC Resident Creating Document: JULI SANDERS RES ~ Discharge Summary Admission Diagnosis: [facility] Hospital Course DATE OF ADMISSION: 03/19/25 DATE OF DISCHARGE: 03/21/25 Discharge Diagnosis\Comment: Chronic liver disease/Cirrhosis/Acute Decompensated Liver Disease Ascites Thrombocytopenia Secondary to Alcohol Use/Liver Disease COPD not in acute excerabation Macrocytic anemia Secondary to Alcohol Use Asymptomatic UTI Tobacco use disorder Alcohol Use Disoder Prominent mesenteric lymph nodes which may be reactive or neoplastic. Operations\Procedures: none Consultants: Surgeon Complications: None Condition on DC: Stable Discharge Summary: History of Present Illness This is a 54-year-old male with past medical history of hepatitis-C,, COPD presented in ER with a complaint of abdominal pain on and off for the past three weeks. Patient reports that the pain is diffuse in the lower abdomen, sharp, rated 8/10 in intensity, nonradiating and worsens with movement. In addition to that he also reports vomiting of greenish yellow fluid about four to 5 times a week bowel movements are regular.He reports he tried tums, baking soda and pepcid which did not help. He also feels fluid in the abdomen and his diet is decreased for the past 3 weeks because of vomitting. He never had EGD, colonoscopy and paracentesis. Apart from that he also complains of exertional shortness of breath for the past three weeks occurring intermittently lasting approximately 5 minutes. Hospital Course This is a 54-year-old male patient presented to the ER with severe abdominal pain rating 8/10. Patient was managed as acute decompensated liver disease. MRCP showed moderate ascites, paracentesis was done, 20 fluid sent for analysis and patient kept on Lasix and Aldactone. Following paracentesis ultrasound shows trace ascites, patient has symptomatically improved. Dr. Powers was consulted,recommended the liver enzymes monitoring and no further imaging required. Patient need to follow up outpatient for possible gallbladder sludge with dilation of CBD. Patient is hemodynamically stable. Labs Laboratory Tests Test 03/19/25 15:00 03/19/25 15:20 03/20/25 05:30 03/20/25 06:34 Urine Specimen Description Cln catch midstream Urine Color Brown Urine Clarity Slightly cloudy Urine pH 6.5 Urine Specific [place] 1.020 Urine Protein 100 mg/dl Urine Glucose (UA) 100 mg/dl Urine Ketones Trace mg/dl Urine Occult Blood Large Urine Nitrite Negative Urine Bilirubin Large Urine Urobilinogen >=8.0 E.U/dL Urine Leukocyte Esterase Negative Urine RBC 50-100 /HPF Urine WBC 5-10 /HPF Urine Squamous Epithelial Cells Few /LPF Urine Amorphous Phosphates 1+ Urine Bacteria 2+ /HPF Urine Cellular Casts 0-4 /LPF Urine Fine Granular Casts 0-3 /LPF Urine Coarse Granular Casts 0-3 /LPF Urine Mucus None seen /LPF Urine Culture Indicated Indicated Volume Urine Centrifuged 10 ml Urine Osmolality 688 MOSM/K Urine Random Creatinine 319.0 MG/DL Urine Random Sodium 65 MEQ/L Urine Random Urea 898.0 MG/DL Urine Comment Urine Opiates Screen Negative Urine Methadone Screen Negative Urine Fentanyl Screen Negative Urine Barbiturates Screen Negative Urine Phencyclidine Screen Negative Urine Amphetamines Screen Negative Urine Benzodiazepines Screen Negative Urine Cocaine Screen Negative Urine Cannabinoids Screen Positive Drug Screen Comment Erythrocyte Sedimentation Rate 42 MM/HR C-Reactive Protein 3.02 MG/DL Triglycerides Level 130 MG/DL Cholesterol Level 107 MG/DL LDL Cholesterol 56 MG/DL HDL Cholesterol 25 MG/DL Cholesterol/HDL Ratio 4.3 Procalcitonin < 0.05 NG/ML Thyroid Stimulating Hormone (TSH) 3.96 ulU/ml Chemistry Comments Glucometer 102 mg/dl White Blood Count 6.0 X10'3 Red Blood Count 2.71 X10'6 Hemoglobin 9.6 g/dl Hematocrit 27.6 % Mean Corpuscular Volume 101.7 FL Mean Corpuscular Hemoglobin 35.3 PG Mean Corpuscular Hemoglobin Concent 34.7 g/dL Red Cell Distribution Width 17.2 % Platelet Count 94 X10'3 Mean Platelet Volume 8.1 FL Neutrophils (%) (Auto) 50.9 % Lymphocytes (%) (Auto) 37.6 % Monocytes (%) (Auto) 8.0 % Eosinophils (%) (Auto) 2.0 % Basophils (%) (Auto) 1.5 % Neutrophils # (Auto) 3.0 X10'3 Lymphocytes # (Auto) 2.3 X10'3 Monocytes # (Auto) 0.5 X10'3 Eosinophils # (Auto) 0.1 X10'3 Basophils # (Auto) 0.1 X10'3 CBC Comment Coagulation Comments Sodium Level 139 MMOL/L Potassium Level 3.5 MMOL/L Chloride Level 105 MMOL/L Carbon Dioxide Level 29.2 MMOL/L Anion Gap 5 Blood Urea Nitrogen 8 MG/DL Creatinine 0.69 MG/DL Estimated GFR/1.73 m2 > 90 ML/MIN BUN/Creatinine Ratio 11.6 Glucose Level 104 MG/DL Calcium Level 7.4 MG/DL Phosphorus Level 2.8 MG/DL Magnesium Level 1.8 MG/DL Total Bilirubin 4.9 MG/DL Aspartate Amino Transf (AST/SGOT) 57 U/L Alanine Aminotransferase (ALT/SGPT) 16 U/L Alkaline Phosphatase 145 IU/L Total Protein 6.6 G/DL Albumin 1.4 G/DL Globulin 5.2 G/DL Albumin/Globulin Ratio 0.3 Test 03/20/25 07:38 03/20/25 09:38 03/20/25 11:33 03/20/25 11:37 Glucometer 105 mg/dl 100 mg/dl Prothrombin Time 22.0 SECONDS INR International Normalized Ratio 2.3 INR Activated Partial Thromboplast Time 35 SECONDS Coagulation Comments Lactic Acid Level 0.9 MMOL/L Ammonia 42 UMOL/L Test 03/21/25 06:00 White Blood Count 5.6 X10'3 Red Blood Count 2.73 X10'6 Hemoglobin 9.9 g/dl Hematocrit 28.2 % Mean Corpuscular Volume 103.3 FL Mean Corpuscular Hemoglobin 36.4 PG Mean Corpuscular Hemoglobin Concent 35.3 g/dL Red Cell Distribution Width 16.8 % Platelet Count 120 X10'3 Mean Platelet Volume 8.3 FL Neutrophils (%) (Auto) 63.6 % Lymphocytes (%) (Auto) 25.1 % Monocytes (%) (Auto) 7.9 % Eosinophils (%) (Auto) 2.3 % Basophils (%) (Auto) 1.1 % Neutrophils # (Auto) 3.6 X10'3 Lymphocytes # (Auto) 1.4 X10'3 Monocytes # (Auto) 0.4 X10'3 Eosinophils # (Auto) 0.1 X10'3 Basophils # (Auto) 0.1 X10'3 CBC Comment Prothrombin Time 21.1 SECONDS INR International Normalized Ratio 2.2 INR Activated Partial Thromboplast Time 34 SECONDS Coagulation Comments Sodium Level 138 MMOL/L Potassium Level 3.7 MMOL/L Chloride Level 104 MMOL/L Carbon Dioxide Level 31.0 MMOL/L Anion Gap 3 Blood Urea Nitrogen 8 MG/DL Creatinine 0.73 MG/DL Estimated GFR/1.73 m2 > 90 ML/MIN BUN/Creatinine Ratio 11.0 Glucose Level 102 MG/DL Calcium Level 7.3 MG/DL Phosphorus Level 2.5 MG/DL Magnesium Level 1.9 MG/DL Total Bilirubin 4.3 MG/DL Direct Bilirubin 1.7 MG/DL Aspartate Amino Transf (AST/SGOT) 59 U/L Alanine Aminotransferase (ALT/SGPT) 18 U/L Alkaline Phosphatase 145 IU/L Ammonia 90 UMOL/L Total Protein 6.9 G/DL Albumin 1.5 G/DL Globulin 5.4 G/DL Albumin/Globulin Ratio 0.3 Chemistry Comments Imaging MRCP FINDINGS: Evaluation is clearly limited due to image degradation secondary to patient motion. The spleen, adrenal glands, liver, and pancreas are grossly unremarkable. Gallbladder is distended with moderate wall thickening. The CBD is dilated, measuring 8 mm. No definite intraductal filling defects to suggest a stone is seen. There is a moderate amount of ascites. The abdominal is normal course and caliber. No enlarged lymph node is seen. There are small to moderate left and small right pleural effusions. IMPRESSION: Clearly limited exam. Distended bladder with moderate wall thickening. Dilated 8 mm common duct. No definite intraductal filling defects to suggest a stone. Moderate ascites. Small to moderate left and small right pleural effusion Abdomen U/S FINDINGS: The liver is diffusely echogenic. The liver surface appears mildly nodular. There is no intrahepatic biliary ductal dilatation. The portal vein is not well seen on the current study. The common bile duct measures 11 mm. The gallbladder is not as well distended on the current study and the gallbladder das appear somewhat irregular. There is a small amount of echogenic sludge within the gallbladder. There is no sonographic Alcazar's sign. The pancreas is obscured by bowel gas. The right kidney measures 11.1 cm. No hydronephrosis or nephrolithiasis is identified. There is no evidence of right renal mass or cyst. The visualized portions of the abdominal aorta demonstrate no evidence of aneurysmal dilatation. The visualized inferior vena cava is unremarkable. There is a small amount of ascites. There is a right pleural effusion. IMPRESSION: Echogenic liver with mildly nodular surface suggestive of cirrhosis. Small amount of ascites. The common bile duct measures 11 mm on the current study, significantly increased since the prior ultrasound but similar in size to the MRCP. Abdomen/Pelvis CT FINDINGS: Moderate right with Moderate to large left-sided pleural effusions and associated atelectasis. Partially visualized heart is normal in size. Trace pericardial effusion. Moderate to large ascites. No pneumoperitoneum. Liver, spleen, pancreas and adrenal glands are unremarkable. Significant distention of the gallbladder with possible sludge within the gallbladder. No gallbladder wall thickening. Dilatation of the common bile duct up to 13 mm. Kidneys, ureters and urinary bladder unremarkable. Prostate is normal size with calcifications. Stomach is unremarkable. Small bowel loops unremarkable. Appendix is not definitely visualized. Small to moderate amount of fecal material within the colon. Rectal wall thickening. No evidence of aortic aneurysm. Minimal atherosclerotic calcification of the aorta. Slightly prominent mesenteric lymph nodes measuring up to 1.2 cm. Small fat containing bilateral inguinal hernias. Minimal body wall edema. No evidence of acute osseous abnormalities. IMPRESSION: Moderate to large ascites. Distention of the gallbladder with possible sludge within the gallbladder and dilatation of the common bile duct up to 13 mm; unchanged from prior imaging. Rectal wall thickening. Correlate for proctitis. Prominent mesenteric lymph nodes which may be reactive or neoplastic. Minimal body wall edema. Moderate right with Moderate to large left-sided pleural effusions and associated atelectasis. Total Time Spent on D/C: > 30 Minutes Date of Service: Mar 21, 2025 Billing Provider: EMMIE SUAREZ MD, SANJAY, ABDIFATAH Mar 21, 2025 10:05
[2025-03-21] MEDS: bisacodyl 10mg suppository rectal RC STA (10:57)
[2025-03-21] MEDS ORDERED: iohexol 300mg/ml 100ml inj. ONE (12:42)
--- NOTE | 2025-03-21 13:46 | RADIOLOGY REPORT ---
Procedure: CT CT CHEST W/ IV CONTRAST 03/21/2025 12:48 PM History: SOB PATIENT REFUSING IV Comparison: DI CHEST,SINGLE VIEW on DOS: 03/01/24 Technique: After the uneventful administration of contrast intravenously, CT imaging was performed through the chest. Coronal and sagittal reformations were performed by the technologist. Radiation Dose : CT Dose: CTDI volume is 17.03 mGy. Dose-length product is 690.9 mGy*cm Findings: Lower neck: Normal thyroid. Lungs: Bilateral lower lobe compressive atelectasis. Diffuse interlobular septal thickening. Heart/Vascular Structures: Cardiomegaly. Coronary artery calcifications. Vascular calcifications of the aorta. Lymph Nodes: No adenopathy Pleura: Moderate left and small to moderate right pleural effusion. Musculoskeletal: No acute osseous abnormality. Degenerative changes of the spine. Soft tissues: Normal. Upper abdomen: Moderate to severe ascites. Heterogeneous enhancement of the liver. IMPRESSION: Cardiomegaly with pulmonary edema and bilateral pleural effusions. This may represent CHF / fluid overload. Moderate to severe ascites. Heterogeneous enhancement of the liver ; possibly cirrhosis.
--- NOTE | 2025-03-21 19:49 | PROGRESS NOTE- Residence ---
Progress Note - Resident Providers to CC Resident Creating Document: JULI SANDERS RES ~ Antibiotic Timeout Antibiotic Ordered?: No Subjective Patient was seen and examined on bedside, reports he is feeling better, denies nausea, vomitting had 2 episodes of bowel movement, one of them was watery, reports mild shortness of breath. Objective Vital Signs Date Time Temp Pulse Resp B/P (MAP) Pulse Ox O2 Delivery O2 Flow Rate FiO2 03/21/25 15:00 97.7 84 20 114/71 (85) 95 Nasal Cannula 1.0 03/21/25 08:51 28 Result Diagram: 03/21/2559903/21/25599 General: awake, alert oriented to place, time, and person HEENT: No pallor present, no icterus, moist mucous membranes Neck: No masses and tenderness Resp: Unlabored. Lungs clear to auscultation bilaterally. Chest: Normal expansion. Cardiovascular: Regular Rate and rhythm, normal S1 and S2 without murmur, rub or gallop Abdomen: Soft and distended, mildly tender in lower abdomen, no organomegaly, no guarding and rigidity, bowel sounds present Neuro: No focal weakness in the upper and lower limb muscles, power of the muscles 5/5 bilateral upper and lower extremities, normal reflexes bilaterally. Cranial nerves intact Extremities: No cyanosis,clubbing or edema Skin: Warm and Dry. Psych: Normal affect Coagulation Studies Laboratory Tests Test 03/21/25 06:00 Prothrombin Time 21.1 SECONDS (9.0-12.0) H INR International Normalized Ratio 2.2 INR Activated Partial Thromboplast Time 34 SECONDS (22-32) H Coagulation Comments Advance Care Planning Advanced Care plannin - 30 Minutes Plan Plan This is 54 year old male,admitted in view of abdominal pain. Chronic liver disease/Cirrhosis/Acute Decompensated Liver Disease Ascites AST 6,ALT 22 AST/ALT highly suggestive alcohol induced liver injury MRCP revealed Dilated 8 mm common duct. No definite intraductal filling defects to suggest a stone,Moderate ascites. Bilirubin initially 4.7, trending downward to 3.9, elevated alkaline phosphatase Bilirubin and alkaline phosphatase levels trending downward. ESR, CRP elevated and WBC count normal. Follow up with CT Scan abdomen/pelvis Consulted ICU Ordered paracentesis, follow up with peritoneal fluid results. Started patient on furosemide 40 mg IV and Aldactone 100 mg p.o. 03/21/25 Ammmonia level is trending up, started patient on lactulose and suppository. Increased Fursemoide 40 mg one daily to [address] with IV contrast: Cardiomegaly with pulmonary edema and bilateral pleural effusions.Moderate to severe ascites.Heterogeneous enhancement of the liver ; possibly cirrhosis Patient underwent U/S bedside, it showed traced ascites. patient might need thoracentesis, will consult ICU team for thoracentesis. Follow up with probnp 03/20/25 CT Abd/Pelvis showed IMPRESSION: Moderate to large ascites. Distention of the gallbladder with possible sludge within the gallbladder and dilatation of the common bile duct up to 13 mm; unchanged from prior imaging. Prominent mesenteric lymph nodes which may be reactive or neoplastic. Moderate right with Moderate to large left-sided pleural effusions and associated atelectasis. Patient need to follow up outpatient for gallbladder, currently he is asymptomatic. Patient underwent U/S bedside, it showed trace ascites. was consulted who recommended to monitor liver enzymes, no further imaging. Thrombocytopenia Secondary to Alcohol Use/Liver Disease Platelets 105 Follow up with CBC, monitor signs for bleeding 03/21/25 Platelets trended upward from 94 to 120 Monitor platelets 03/20/30 Platelet dropped to 94, in view of this helded lovenox Follow up with CMP. COPD not in acute excerabation Patient does not take anything at home for COPD. DuoNebs q.4 PRN Macrocytic anemia Secondary to Alcohol Use MCV 101.6 HGB 9.4 HCT 27.2 Follow up with CBC and vitamin B12 Asymptomatic UTI No treament required Tobacco use disorder Alcohol Use Disorder Nicotine patch in place Substance use navigator consulted Code Status: Full Code Dvt Prophylaxis: SCD GI Prophylaxis: Pantoprazole 40 mg PO Diet: Sodium Restricted diet. Disposition:Patientt will undergo thoracentesis possibly tomorrow, will continue to monitor patient. Date of Service: Mar 21, 2025 Billing Provider: EMMIE SUAREZ MD Common Visit Codes: [id number] INP/OBS CARE(HIGH) JULI SANDERS, ABDIFATAH Mar 21, 2025 19:49 EMMIE SUAREZ MD Mar 21, 2025 21:05
[2025-03-22] VITALS (12 sets, daily range): BP systolic 97–135; BP diastolic 57–76; PULSE 76–100; RESP 12–20; TEMP 97.4–98.4; O2SAT 91–97
[2025-03-22 03:22] LABS: MEAN PLATELET VOLUME 8.1 FL (7.4-10.4); RED CELL DISTRIBUTION WIDTH 16.8 % (11.5-14.5)
[2025-03-22 03:36] LABS: APTT 33 SECONDS (22-32); INR 2.2 INR
[2025-03-22 03:39] LABS: CREATININE 0.68 MG/DL (0.60-1.10); PHOSPHORUS 2.7 MG/DL (2.3-4.5); TOTAL CARBON DIOXIDE 31.0 MMOL/L (24-32); eCRCL 137 ML/MIN; eGFR > 90 ML/MIN
[2025-03-22] MEDS: ipratropium/albuterol 3ml nebule NEB PRN (09:05)
--- NOTE | 2025-03-22 12:03 | PROCEDURE NOTE CC ---
Procedure Note CC Providers to CC ~ Procedure Name: Thoracentesis Description: Indication: Pleural Effusion Consent: Pt Time-out: Done Site Left-side Anesthesia: Local Technique: US guided Fluid: 1000ml clear yellowish Complication: None EBL: 0ml Sepsis Screening Reassessment Date: Mar 22, 2025 SUZANNA WADE MD Mar 22, 2025 12:03
[2025-03-22 12:05] LABS: BFSOURCE LEFT PLEURAL FLD; PLEURAL FLUID PH 7.640 (7.63-7.65)
[2025-03-22 12:20] LABS: GLUCOSE,BODY FLUID 115 MG/DL; LDH,BODY FLUID 88 U/L
[2025-03-22 13:05] LABS: BF MESOTHELIAL CELLS FEW; BF WBC COUNT 400 /CU MM (0-1000); BFAPPEAR HAZY; BFCOLOR YELLOW; BFSOURCE LEFT PLEURAL FLD; BFVOLUME 30 ML; LYMPHOCYTES,BODY FLUID 25 %; MONOCYTES,BODY FLUID 53 %; NEUTROPHILS,BODY FLUID 21 %
[2025-03-22 13:06] LABS: BF RBC COUNT 1413 /CU MM
[2025-03-22 13:15] LABS: TOTAL PROTEIN,BODY FLUID < 2.0 G/DL
--- NOTE | 2025-03-22 19:13 | PROGRESS NOTE- Residence ---
Progress Note - Resident Providers to CC Resident Creating Document: JULI SANDERS RES ~ Antibiotic Timeout Antibiotic Ordered?: No Subjective Patient was seen and examined on bedside, reports he cant eat much because he think stomach is bloated, after thoracentesis he feels pain over needle area and reports taking deep breath hurts that area. Objective Vital Signs Date Time Temp Pulse Resp B/P (MAP) Pulse Ox O2 Delivery O2 Flow Rate FiO2 03/22/25 15:00 97.7 81 18 98/57 (71) 95 Room Air 03/22/25 09:14 0.0 21 Result Diagram: 03/22/25 0300 03/22/25 030 General: awake, alert oriented to place, time, and person HEENT: No pallor present, no icterus, moist mucous membranes Neck: No masses and tenderness Resp: Unlabored. Lungs clear to auscultation bilaterally. Chest: Normal expansion. Cardiovascular: Regular Rate and rhythm, normal S1 and S2 without murmur, rub or gallop Abdomen: Soft and distended, mildly tender in lower abdomen, no organomegaly, no guarding and rigidity, bowel sounds present Neuro: No focal weakness in the upper and lower limb muscles, power of the muscles 5/5 bilateral upper and lower extremities, normal reflexes bilaterally. Cranial nerves intact Extremities: No cyanosis,clubbing or edema Skin: Warm and Dry. Psych: Normal affect Coagulation Studies Laboratory Tests Test 03/22/25 03:00 Prothrombin Time 21.1 SECONDS (9.0-12.0) H INR International Normalized Ratio 2.2 INR Activated Partial Thromboplast Time 33 SECONDS (22-32) H Coagulation Comments Advance Care Planning Advanced Care plannin - 30 Minutes Plan Plan This is 54 year old male,admitted in view of abdominal pain. Chronic liver disease/Cirrhosis/Acute Decompensated Liver Disease Ascites AST 6,ALT 22 AST/ALT highly suggestive alcohol induced liver injury MRCP revealed Dilated 8 mm common duct. No definite intraductal filling defects to suggest a stone,Moderate ascites. Bilirubin initially 4.7, trending downward to 3.9, elevated alkaline phosphatase Bilirubin and alkaline phosphatase levels trending downward. ESR, CRP elevated and WBC count normal. Follow up with CT Scan abdomen/pelvis Consulted ICU Ordered paracentesis, follow up with peritoneal fluid results. Started patient on furosemide 40 mg IV and Aldactone 100 mg p.o. 03/22/25 Patient underwent thoracentesis today on awaiting results. Patient had three bowel movements today 03/21/25 Ammmonia level is trending up, started patient on lactulose and suppository. Increased Fursemoide 40 mg one daily to [address] with IV contrast: Cardiomegaly with pulmonary edema and bilateral pleural effusions.Moderate to severe ascites.Heterogeneous enhancement of the liver ; possibly cirrhosis Patient underwent U/S bedside, it showed traced ascites. patient might need thoracentesis, will consult ICU team for thoracentesis. Follow up with probnp 03/20/25 CT Abd/Pelvis showed IMPRESSION: Moderate to large ascites. Distention of the gallbladder with possible sludge within the gallbladder and dilatation of the common bile duct up to 13 mm; unchanged from prior imaging. Prominent mesenteric lymph nodes which may be reactive or neoplastic. Moderate right with Moderate to large left-sided pleural effusions and associated atelectasis. Patient need to follow up outpatient for gallbladder, currently he is asymptomatic. Patient underwent U/S bedside, it showed trace ascites. was consulted who recommended to monitor liver enzymes, no further imaging. Thrombocytopenia Secondary to Alcohol Use/Liver Disease Platelets 105 Follow up with CBC, monitor signs for bleeding 03/22/25 Platelets 123 Follow up with CBC,, monitor signs for bleeding 03/21/25 Platelets trended upward from 94 to 120 Monitor platelets 03/20/30 Platelet dropped to 94, in view of this helded lovenox Follow up with CMP. COPD not in acute excerabation Patient does not take anything at home for COPD. DuoNebs q.4 PRN Macrocytic anemia Secondary to Alcohol Use MCV 101.6 HGB 9.4 HCT 27.2 Follow up with CBC and vitamin B12 03/22/25 Hgb: 9.6, Hct 20.3 MCV 102 Vitamin B12 level is 1587 Microcytic anemia possibly secondary to folate deficiency Patient need to follow up with folate levels outpatient Asymptomatic UTI No treament required Tobacco use disorder Alcohol Use Disorder Nicotine patch in place Substance use navigator consulted Code Status: Full Code Dvt Prophylaxis: SCD GI Prophylaxis: Pantoprazole 40 mg PO Diet: Sodium Restricted diet. Disposition: Patient underwent thoracocentesis we will continue to monitor patient ,on room air maintaining oxygen sat. Patient is seen and examined with resident at bedside. He seems very angry and upset. He is not sure why all these things are happening to him we did try to answer all his questions to the best of my ability. Date of Service: Mar 22, 2025 Billing Provider: KATIE NEGRON MD Common Visit Codes: [id number] INP/OBS CARE(HIGH) JULI SANDERS, RES Mar 22, 2025 19:13 KATIE NEGRON MD Mar 23, 2025 10:40
[2025-03-23 02:00] VITALS: BP 93/53; PULSE 79; RESP 12; TEMP 98.2; O2SAT 93
[2025-03-23 06:00] VITALS: BP 104/64; PULSE 68; RESP 14; TEMP 98.1; O2SAT 98
[2025-03-23 06:08] LABS: MEAN PLATELET VOLUME 8.1 FL (7.4-10.4); RED CELL DISTRIBUTION WIDTH 16.6 % (11.5-14.5)
[2025-03-23 06:09] LABS: INR 2.2 INR
[2025-03-23 06:27] LABS: CREATININE 0.62 MG/DL (0.60-1.10); TOTAL CARBON DIOXIDE 31.7 MMOL/L (24-32); eCRCL 150 ML/MIN; eGFR > 90 ML/MIN
[2025-03-23 06:33] LABS: PHOSPHORUS 2.8 MG/DL (2.3-4.5)
[2025-03-23 08:00] VITALS: RESP 15; O2SAT 94
[2025-03-23 08:18] VITALS: PULSE 88; RESP 18; O2SAT 90
[2025-03-23 11:00] VITALS: BP 110/78; PULSE 88; RESP 15; TEMP 98.2; O2SAT 94
[2025-03-23 11:15] VITALS: RESP 14
[2025-03-23] MEDS: multivitamins, therapeutics tablet PO SCH (12:05)
[2025-03-23] MEDS ORDERED: SPIR50TA5 PO (13:11)
[2025-03-23] MEDS ORDERED: FURO40TA4 PO (13:11)
[2025-03-23] MEDS ORDERED: NICO-631 TD (13:11)
[2025-03-23] MEDS ORDERED: PANT40TA54 PO (13:11)
[2025-03-23] MEDS ORDERED: LACT-373 PO (13:11)
[2025-03-23] MEDS ORDERED: FOLI1TAB27 PO (13:11)
[2025-03-23] MEDS ORDERED: MULT-25 PO (13:11)
[2025-03-23] MEDS ORDERED: BUDE0.253 NEB (13:11)
[2025-03-23] MEDS ORDERED: thiamine tablet PO (13:11)
--- NOTE | 2025-03-23 16:12 | DISCHARGE SUMMARY-Residence ---
Discharge Summary Providers to CC Resident Creating Document: JULI SANDERS RES ~ Discharge Summary Admission Diagnosis: [facility] Hospital Course DATE OF ADMISSION: 03/19/25 DATE OF DISCHARGE: 03/23/25 Discharge Diagnosis\Comment: Chronic liver disease/Cirrhosis/Acute Decompensated Liver Disease Thrombocytopenia Secondary to Alcohol Use/Liver Disease COPD Macrocytic anemia Secondary to Alcohol Use Asymptomatic UTI Tobacco use disorder Alcohol Use Disorder Operations\Procedures: Thoracocentesis Consultants: SURGEON AND ICU DOCTOR WERE CONSULTED Complications: none Condition on DC: Stable New Medications: Budesonide (Pulmicort) 0.25 Mg/2 Ml Ampul.neb 1 VIAL NEB Q12H PRN for SOB or wheezing for 30 Days, #120 ML 0 Refills Folic Acid* (Folic Acid*) Y Tab 1 MG PO DAILY, #30 TAB Furosemide (Furosemide) 40 Mg Tablet 40 MG PO DAILY, #30 TAB Lactulose (Lactulose) 10 Gram/15 Ml Solution 20 GM PO BID, #60 ML Multivitamin with Folic Acid (Thera Tablet) 400 Mcg Tablet 1 EACH PO DAILY, #30 TAB Nicotine 14 MG Patch* (Habitrol 14 MG Patch*) 1 Each Patch.td24 1 PATCH TD DAILY, #14 PATCH Pantoprazole Sodium (Pantoprazole Sodium) 40 Mg Tablet.dr 40 MG PO BKF, #30 TAB.SR Spironolactone (Spironolactone) 50 Mg Tablet 100 MG PO DAILY@0830, #60 TAB [thiamine tablet] () 100 MG TABLET 100 MG PO DAILY, #30 Continued Medications: Buprenorphine (Brixadi) 128 Mg/0.36 Ml Arianna.syr 128 IM Discharge Summary: Hospital Course This is a 54-year-old male with past medical history of hepatitis-C, COPD presented in ER with complain of abdominal pain on and off for the past three weeks, MRCP revealed dilated common bile duct 8 mm without definite intraductal filling defect to suggest stones. On examination abdomen was markedly distended however bedside, ultrasound showed only trace ascites, paracentesis was deffered, lab workup showed elevated bilirubin 4.7 levels were fluctating, during hospitalization ,alkaline phosphatase was also elevated which normalized prior to discharge and serum ammonia was elevated for which the patient was started on lactulose and suppositories resulting in regular bowel movements, patient did not experienced any symptoms of hepatic encephalopathy. In view of ascites patient was started on diuretics furosemide and spironolactone. During hospitalization patient also required oxygen 2 L nasal cannula however it was eventually weaned off and patient was maintaining oxygen saturation on room air, chest ct showed bilateral pleural effusions for which he he underwent thoracocentesis. Patient also had pancytopenia possibly secondary to cirrhosis or chronic alcohol use. Abdominal ultrasound was suggestive of cirrhosis, patient was placed on sodium restricted diet Apart from that patient UA was suggestive of UTI however patient was asymptomatic so no treatment for UTI was given, urine culture was negative. Patient advised to follow up with GI and PCP within two weeks of discharge. Was advised to avoid alcohol and smoking. Patient also had Significant distention of the gallbladder with possible sludge within the gallbladder however it was asymptomatic and patient was advised to follow up with surgeon outpatient. Informed patient about mesenteric lympadenopathy and made him aware that it could be due to malignancy and discuss with your PCP. Patient was stable and ready for discharge and was able to walk by himself so not PT was required. Physical Examination General: awake, alert oriented to place, time, and person HEENT: No pallor present, no icterus, moist mucous membranes Neck: No masses and tenderness Resp: Unlabored. Lungs clear to auscultation bilaterally. Chest: Normal expansion. Cardiovascular: Regular Rate and rhythm, normal S1 and S2 without murmur, rub or gallop Abdomen: Soft and distended, mildly tender in lower abdomen, no organomegaly, no guarding and rigidity, bowel sounds present Neuro: No focal weakness in the upper and lower limb muscles, power of the muscles 5/5 bilateral upper and lower extremities, normal reflexes bilaterally. Cranial nerves intact Extremities: No cyanosis,clubbing or edema Skin: Warm and Dry. Psych: Normal affect Labs Laboratory Tests Test 03/21/25 20:07 03/22/25 03:00 03/22/25 10:55 03/23/25 05:00 Pro-B-Type Natriuretic Peptide 363 PG/ML White Blood Count 5.7 X10'3 5.0 X10'3 Red Blood Count 2.68 X10'6 2.48 X10'6 Hemoglobin 9.6 g/dl 9.0 g/dl Hematocrit 27.3 % 25.5 % Mean Corpuscular Volume 102.0 FL 102.7 FL Mean Corpuscular Hemoglobin 35.8 PG 36.2 PG Mean Corpuscular Hemoglobin Concent 35.1 g/dL 35.2 g/dL Red Cell Distribution Width 16.8 % 16.6 % Platelet Count 123 X10'3 112 X10'3 Mean Platelet Volume 8.1 FL 8.1 FL Neutrophils (%) (Auto) 62.7 % 60.3 % Lymphocytes (%) (Auto) 24.9 % 25.5 % Monocytes (%) (Auto) 9.8 % 10.7 % Eosinophils (%) (Auto) 1.8 % 2.4 % Basophils (%) (Auto) 0.8 % 1.1 % Neutrophils # (Auto) 3.5 X10'3 3.0 X10'3 Lymphocytes # (Auto) 1.4 X10'3 1.3 X10'3 Monocytes # (Auto) 0.6 X10'3 0.5 X10'3 Eosinophils # (Auto) 0.1 X10'3 0.1 X10'3 Basophils # (Auto) 0.0 X10'3 0.1 X10'3 CBC Comment Prothrombin Time 21.1 SECONDS 21.0 SECONDS INR International Normalized Ratio 2.2 INR 2.2 INR Activated Partial Thromboplast Time 33 SECONDS Coagulation Comments Sodium Level 136 MMOL/L 139 MMOL/L Potassium Level 3.7 MMOL/L 3.8 MMOL/L Chloride Level 103 MMOL/L 105 MMOL/L Carbon Dioxide Level 31.0 MMOL/L 31.7 MMOL/L Anion Gap 2 2 Blood Urea Nitrogen 7 MG/DL 5 MG/DL Creatinine 0.68 MG/DL 0.62 MG/DL Estimated GFR/1.73 m2 > 90 ML/MIN > 90 ML/MIN BUN/Creatinine Ratio 10.3 8.1 Glucose Level 110 MG/DL 94 MG/DL Calcium Level 7.5 MG/DL 7.3 MG/DL Phosphorus Level 2.7 MG/DL 2.8 MG/DL Magnesium Level 1.9 MG/DL 1.7 MG/DL Total Bilirubin 3.6 MG/DL 4.2 MG/DL Aspartate Amino Transf (AST/SGOT) 58 U/L 68 U/L Alanine Aminotransferase (ALT/SGPT) 15 U/L 18 U/L Alkaline Phosphatase 141 IU/L 112 IU/L Total Protein 6.6 G/DL 6.4 G/DL Albumin 1.5 G/DL 1.4 G/DL Globulin 5.1 G/DL 5.0 G/DL Albumin/Globulin Ratio 0.3 0.3 Chemistry Comments Body Fluid Source Left pleural fld Body Fluid Volume 30 ML Body Fluid Color Yellow Body Fluid Appearance Hazy Body Fluid WBC 400 /CU MM Body Fluid RBC 1413 /CU MM Body Fluid Neutrophils 21 % Body Fluid Lymphocytes 25 % Body Fluid Monocytes 53 % Body Fluid Mesothelial Cells Few Body Fluid Clot None seen Body Fluid Glucose 115 MG/DL Body Fluid Total Protein < 2.0 G/DL Body Fluid Lactate Dehydrogenase 88 U/L Pleural Fluid pH 7.640 Pathology Specimen Done Imaging MRCP FINDINGS: Evaluation is clearly limited due to image degradation secondary to patient motion. The spleen, adrenal glands, liver, and pancreas are grossly unremarkable. Gallbladder is distended with moderate wall thickening. The CBD is dilated, measuring 8 mm. No definite intraductal filling defects to suggest a stone is seen. There is a moderate amount of ascites. The abdominal is normal course and caliber. No enlarged lymph node is seen. There are small to moderate left and small right pleural effusions. IMPRESSION: Clearly limited exam. Distended bladder with moderate wall thickening. Dilated 8 mm common duct. No definite intraductal filling defects to suggest a stone. Moderate ascites. Small to moderate left and small right pleural effusion Abdominal U/S FINDINGS: The liver is diffusely echogenic. The liver surface appears mildly nodular. There is no intrahepatic biliary ductal dilatation. The portal vein is not well seen on the current study. The common bile duct measures 11 mm. The gallbladder is not as well distended on the current study and the gallbladder das appear somewhat irregular. There is a small amount of echogenic sludge within the gallbladder. There is no sonographic Alcazar's sign. The pancreas is obscured by bowel gas. The right kidney measures 11.1 cm. No hydronephrosis or nephrolithiasis is identified. There is no evidence of right renal mass or cyst. The visualized portions of the abdominal aorta demonstrate no evidence of aneurysmal dilatation. The visualized inferior vena cava is unremarkable. There is a small amount of ascites. There is a right pleural effusion. IMPRESSION: Echogenic liver with mildly nodular surface suggestive of cirrhosis. Small amount of ascites. The common bile duct measures 11 mm on the current study, significantly increased since the prior ultrasound but similar in size to the MRCP. Abdomen/Pelvis CT FINDINGS: Moderate right with Moderate to large left-sided pleural effusions and associated atelectasis. Partially visualized heart is normal in size. Trace pericardial effusion. Moderate to large ascites. No pneumoperitoneum. Liver, spleen, pancreas and adrenal glands are unremarkable. Significant distention of the gallbladder with possible sludge within the gallbladder. No gallbladder wall thickening. Dilatation of the common bile duct up to 13 mm. Kidneys, ureters and urinary bladder unremarkable. Prostate is normal size with calcifications. Stomach is unremarkable. Small bowel loops unremarkable. Appendix is not definitely visualized. Small to moderate amount of fecal material within the colon. Rectal wall thickening. No evidence of aortic aneurysm. Minimal atherosclerotic calcification of the aorta. Slightly prominent mesenteric lymph nodes measuring up to 1.2 cm. Small fat containing bilateral inguinal hernias. Minimal body wall edema. No evidence of acute osseous abnormalities. IMPRESSION: Moderate to large ascites. Distention of the gallbladder with possible sludge within the gallbladder and dilatation of the common bile duct up to 13 mm; unchanged from prior imaging. Rectal wall thickening. Correlate for proctitis. Prominent mesenteric lymph nodes which may be reactive or neoplastic. Minimal body wall edema. Moderate right with Moderate to large left-sided pleural effusions and associated atelectasis. Chest CT: Findings: Lower neck: Normal thyroid. Lungs: Bilateral lower lobe compressive atelectasis. Diffuse interlobular septal thickening. Heart/Vascular Structures: Cardiomegaly. Coronary artery calcifications. Vascular calcifications of the aorta. Lymph Nodes: No adenopathy Pleura: Moderate left and small to moderate right pleural effusion. Musculoskeletal: No acute osseous abnormality. Degenerative changes of the spine. Soft tissues: Normal. Upper abdomen: Moderate to severe ascites. Heterogeneous enhancement of the liver. IMPRESSION: Cardiomegaly with pulmonary edema and bilateral pleural effusions. This may represent CHF / fluid overload. Moderate to severe ascites. Heterogeneous enhancement of the liver ; possibly cirrhosis. *Problems/Diagnosis: (1) Abdominal pain Status: Resolved Total Time Spent on D/C: > 30 Minutes Date of Service: Mar 23, 2025 Billing Provider: KATIE NEGRON MD, SANJAY, RES Mar 23, 2025 16:12
== END 2025-03-23 14:55 | disposition home or self-care (01) ==
LOC: ER 11:35 → ED HOLD 03-19 08:42 → PCU 3S 03-19 10:26
PROVIDERS: ADMIT Internal Medicine; ATTEND Internal Medicine
PROC: BW211ZZ Computerized Tomography (CT Scan) of Abdomen and Pelvis using Low Osmolar Contrast (ICD-10-PCS; 2025-03-20)
PROC: BW241ZZ Computerized Tomography (CT Scan) of Chest and Abdomen using Low Osmolar Contrast (ICD-10-PCS; 2025-03-21)
PROC: 05HB33Z Insertion of Infusion Device into Right Basilic Vein, Percutaneous Approach (ICD-10-PCS; 2025-03-21)
PROC: B54MZZA Ultrasonography of Right Upper Extremity Veins, Guidance (ICD-10-PCS; 2025-03-21)
PROC: 0W9B3ZZ Drainage of Left Pleural Cavity, Percutaneous Approach (ICD-10-PCS; principal; 2025-03-22)
DX: K74.69 Other cirrhosis of liver (principal); D61.818 Other pancytopenia; J90 Pleural effusion, not elsewhere classified; R18.8 Other ascites; D53.9 Nutritional anemia, unspecified; Z20.822 Contact with and (suspected) exposure to COVID-19; F10.90 Alcohol use, unspecified, uncomplicated; J44.9 Chronic obstructive pulmonary disease, unspecified; N39.0 Urinary tract infection, site not specified; D69.59 Other secondary thrombocytopenia; Z79.899 Other long term (current) drug therapy
CPT/HCPCS: 32555; 36410; 36415; 71260; 74176; 74181; 76700; 76705; 76937; 80053; 80061; 80305; 81001; 82140; 82248; 82570; 82607; 82945; 82948; 83605; 83615; 83690; 83735; 83880; 83935; 83986; 84100; 84145; 84157; 84300; 84443; 84540; 85025; 85610; 85651; 85730; 86140; 86803; 87070; 87075; 87081; 87088; 87102; 87522; 87811; 89051; 94640; 94760; 97116; 97161; 97530; 99285; A4615; A4620; A6258; C1729; C1751; G0378; J1171; J1650; J1938; J2270; J2470; Q9967

== ENCOUNTER 2025-03-25 20:32 | Inpatient (IN) | payer MEDICAID ==
[~2025-03-25] VITALS: Ht 185.4 cm; Wt 78.7 kg
[~2025-03-25 20:32] MED LIST changes: +BUDE0.253 NEB; +BUPR128S IM; +FOLI1TAB27 PO; +FURO40TA4 PO; +LACT-373 PO; +MULT-25 PO; +NICO-631 TD; -ONDA-243 PO; -ONDA-245 PO; +PANT40TA54 PO; +SPIR50TA5 PO; +thiamine tablet PO
[2025-03-26 01:33] LABS: MEAN PLATELET VOLUME 7.6 FL (7.4-10.4); RED CELL DISTRIBUTION WIDTH 16.7 % (11.5-14.5)
[2025-03-26 01:35] LABS: LEUKOCYTE ESTERASE ,URINE NEGATIVE (Neg); NITRITES, URINE NEGATIVE (Neg); OCCULT BLOOD,URINE LARGE (Neg)
[2025-03-26 01:37] LABS: UA COLLECTION TYPE NON-SPECIFIED
[2025-03-26 01:42] LABS: SQUAMOUS EPITHELIAL CELL,UR FEW /LPF (FEW)
[2025-03-26 01:47] LABS: CREATININE 1.07 MG/DL (0.60-1.10); TOTAL CARBON DIOXIDE 29.2 MMOL/L (24-32); eCRCL 87 ML/MIN; eGFR 71 ML/MIN
--- NOTE | 2025-03-26 03:17 | RADIOLOGY REPORT ---
INDICATION: RUQ abdominal pain TECHNIQUE: Multiple real-time sonographic images were obtained of the right upper quadrant. COMPARISON: CT CT ABDOMEN PELVIS on DOS: 03/20/25, ANGIO PARACENTESIS DIAGNOSTIC (A) on DOS: 03/20/25, ANGIO PARACENTESIS THERAPEUTIC (A) on DOS: 03/20/25, US ULTRASOUND OF ABDOMEN on DOS: 03/19/25, MR MRCP on DOS: 03/18/25 FINDINGS: The liver demonstrates diffusely increased echotexture without focal mass lesions. The liver measures 16.0 cm. Normal hepatopetal portal venous flow appreciated. No evidence of abdominal ascites. Moderate right pleural effusion. There is no intrahepatic or extrahepatic ductal dilatation. The common duct measures 1.5 cm. Gallbladder sludge. The gallbladder is mildly thickened, measuring 0.6 cm. Negative sonographic alcazar's sign. The right kidney measures 11.6 cm. The right kidney is normal in contour, size, and shape. The echogenicity is normal. There is no hydronephrosis. The pancreas is not well visualized due to overlying bowel gas. IMPRESSION: 1. Gallbladder sludge and mild gallbladder wall thickening. Negative sonographic Alcazar sign. 2. Hepatic steatosis. 3. Moderate right pleural effusion.
--- NOTE | 2025-03-26 04:21 | Physician Documentation ---
History of Present Illness Chief Complaint: Abdominal Pain Stated Complaint: GALLBLADDER ISSUES Primary Medical Doctor: TERESA BARCLAY HPI 54 year old male instructed to return to the hospital for his abdominal pain. He was recently admitted here and there was a concern for gallbladder pathology after a workup demonstrated CBD dilitation and thickened gallbladder wall. The patient has known cirrhosis and chronically elevated t. bili and suffers from ascites. He was discharged this week and then asked to return but he is unclear why. He reports continued epigastric/RUQ abdominal pain. Medication Reconciliation Allergies: Coded Allergies: No Known Allergies (Unverified , 12/08/24) Scheduled Folic Acid* (Folic Acid*), 1 MG PO DAILY Furosemide (Furosemide), 40 MG PO DAILY Lactulose (Lactulose), 20 GM PO BID Multivitamin with Folic Acid (Thera Tablet), 1 EACH PO DAILY Nicotine 14 MG Patch* (Habitrol 14 MG Patch*), 1 PATCH TD DAILY Pantoprazole Sodium (Pantoprazole Sodium), 40 MG PO BKF Spironolactone (Spironolactone), 100 MG PO DAILY@0830 [thiamine tablet], 100 MG PO DAILY Scheduled PRN Budesonide (Pulmicort), 1 VIAL NEB Q12H PRN for SOB or wheezing Miscellaneous Medications Buprenorphine (Brixadi), 128 IM, (Reported) Past Medical History Patient History: FH: diabetes mellitus Physical Exam Vital Signs: Temperature: 98.0, Source: Oral, Heart Rate: 86, Respiratory Rate: 14, BP: 115/77, Pulse Oximetry: 95, Weight: 83.000 Oxygen Flow Rate: 0 Progress Results/Orders Results/Orders Orders - NEW STEPHEN MD Ultrasound Of Abdomen (03/26/25 00:55) Cult Urine + [place] [address] (03/26/25 01:43) Completed Orders - NEW STEPHEN MD Cbc/Diff (03/25/25 20:51) Lipase (03/25/25 20:51) CMP (03/25/25 20:51) Ultrasound Of Abdomen (03/26/25 00:55) Ua W/Microscopic, Cult If Ind (03/26/25 00:41) Vital Signs 03/25/25 03/25/25 03/26/25 20:45 22:49 02:07 Temp 98.5 98.0 98.0 Pulse 109 106 86 Resp 16 16 14 B/P (MAP) 136/83 135/90 (105) 115/77 (90) Pulse Ox 97 95 95 O2 Flow Rate 0 0 0 Laboratory Tests Test 03/26/25 00:41 03/26/25 01:12 Urine Specimen Description Non-specified Urine Color Yellow Urine Clarity Clear Urine pH 6.0 Urine Specific [place] <=1.005 Urine Protein Negative Urine Glucose (UA) Negative Urine Ketones Negative Urine Occult Blood Large H Urine Nitrite Negative Urine Bilirubin Small Urine Urobilinogen 1.0 Urine Leukocyte Esterase Negative Urine RBC 3-10 Urine WBC 5-10 H Urine Squamous Epithelial Cells Few Urine Bacteria 2+ Urine Culture Indicated Indicated Volume Urine Centrifuged 10 ml Urine Comment Low volume White Blood Count 8.5 Red Blood Count 2.69 L Hemoglobin 9.9 L Hematocrit 27.8 L Mean Corpuscular Volume 103.4 H Mean Corpuscular Hemoglobin 36.7 H Mean Corpuscular Hemoglobin Concent 35.5 Red Cell Distribution Width 16.7 H Platelet Count 152 Mean Platelet Volume 7.6 Neutrophils (%) (Auto) 63.4 Lymphocytes (%) (Auto) 21.7 Monocytes (%) (Auto) 11.9 Eosinophils (%) (Auto) 2.0 Basophils (%) (Auto) 1.0 Neutrophils # (Auto) 5.4 Lymphocytes # (Auto) 1.8 Monocytes # (Auto) 1.0 H Eosinophils # (Auto) 0.2 Basophils # (Auto) 0.1 CBC Comment Sodium Level 134 L Potassium Level 3.6 Chloride Level 100 Carbon Dioxide Level 29.2 Anion Gap 5 L Blood Urea Nitrogen 9 Creatinine 1.07 Estimated GFR/1.73 m2 71 BUN/Creatinine Ratio 8.4 L Glucose Level 113 H Calcium Level 7.7 L Total Bilirubin 4.1 H Aspartate Amino Transf (AST/SGOT) 98 H Alanine Aminotransferase (ALT/SGPT) 28 Alkaline Phosphatase 168 H Total Protein 8.2 Albumin 2.1 L Globulin 6.1 H Albumin/Globulin Ratio 0.3 L Lipase 52 Chemistry Comments Microbiology Date/Time Source Procedure Growth Status 03/26/25 01:43 Urine Nonspecified Urine Culture - Preliminary Culture received. Resulted Departure Referrals: NO PRIMARY CARE PROVIDER (PCP) NEW STEPHEN MD Mar 26, 2025 04:21
[2025-03-26] MEDS ORDERED: mag hydrox/Alum hydrox/simeth 30ml oral suspension PO PRN (06:15)
[2025-03-26] MEDS ORDERED: potassium Cl 20 mEq SR tablet PO PRN (06:15)
[2025-03-26] MEDS ORDERED: magnesium sulf-water 4G/100mL 100 ML IV PRN (06:15)
[2025-03-26] MEDS ORDERED: magnesium sulf-water 2g/50mL 50 ML IV PRN (06:15)
[2025-03-26] MEDS ORDERED: potassium Cl 40MEQ/1/2NS 520ml 520 ML IV PRN (06:15)
[2025-03-26] MEDS ORDERED: ondansetron/PF 4mg/2ml inj IV PRN (06:15)
[2025-03-26] MEDS ORDERED: magnesium hydroxide 30ml (MOM) UD suspension PO PRN (06:15)
[2025-03-26] MEDS ORDERED: magnesium Cl slow-release 64mg tablet PO PRN (06:15)
--- NOTE | 2025-03-26 06:31 | HISTORY AND PHYSICAL-Residence ---
History & Physical Providers to CC Resident Creating Document: SREEDHAR BOOTHE, ABDIFATAH ~ History of Present Illness Primary Medical Doctor: TERESA BARCLAY Reason for Admit\Complaint: Abdominal distention History of Present Illness This is a 54-year-old male with history of cirrhosis of liver, alcohol abuse, hepatitis-C, ascites, came to the ER with a complaint of in increasing abdominal discomfort and distention. He was recently discharged on 03/23/2025, where he was managed for cirrhosis of liver, and gallbladder pathology. Ultrasound during that time showed trace ascites and paracentesis was deferred. Chest CT was done which showed bilateral pleural effusion and thoracocentesis was done. MRCP done during that visit showed a dilated common bile duct of up to 8 mm without any filling defects or stones., surgeon was consulted at the time recommended outpatient follow up which the patient did not get time to yet. Abdominal imaging also showed mesenteric lymphadenopathy and was recommended to follow up outpatient for malignancy workup. Post discharge he had continued to take his medications for two days, later lost his medications. Patient was diagnosed with cirrhosis of liver about 20 years ago, likely secondary to alcohol use, also was diagnosed with Hepatitis around the same time and has completed treatment for it. About three weeks ago he had an episode of vomiting which had few streaks of blood. Never had an EGD done. Denies any history of melena, never had a colonoscopy done. Never had a paracentesis done. Reports he he did have few episodes of confusion/encephalopathy. Has regular bowel movements. Alcohol history has been drinking since age of 12, previously used to drink hard liquor, currently drinks only beer about 3-4 bottles. last drink was 13 days ago. Previously he did have withdrawal seizures. Allergies: Coded Allergies: No Known Allergies (Unverified , 12/08/24) Home Medications Home Medications Active Pulmicort (Budesonide) 0.25 Mg/2 Ml Ampul.neb 1 Vial NEB Q12H PRN 30 Days Thera Tablet (Multivitamin with Folic Acid) 400 Mcg Tablet 1 Each PO DAILY [thiamine tablet] 100 MG Tablet 100 Mg PO DAILY Folic Acid* (Folic Acid) Y Tab 1 Mg PO DAILY Pantoprazole Sodium 40 Mg Tablet.dr 40 Mg PO BKF Furosemide 40 Mg Tablet 40 Mg PO DAILY Lactulose 10 Gram/15 Ml Solution 20 Gm PO BID Spironolactone 50 Mg Tablet 100 Mg PO DAILY@0830 Habitrol 14 MG Patch* (Nicotine) 1 Each Patch.td24 1 Patch TD DAILY Reported Brixadi (Buprenorphine) 128 Mg/0.36 Ml Arianna.syr 128 IM Past Medical History Past Medical History Cirrhosis of liver Ascites Hepatitis-C Past Surgical History Surgical History Comment Surgery for left elbow Family History Family History: FH: diabetes mellitus Past Social History Social History Comment Smokes about one pack a day, has been smoking for more than 20 years Previously was a heavy drinker, last drink was 13 days ago, usually drinks beer about 3-4 bottles. 20 years ago he did use IV heroin He lives alone He used to work as an [employer] worker. ROS Constitutional: Denies: no symptoms reported, see HPI, chills, diaphoresis, fever, malaise, weakness, other Eyes: Denies: no symptoms reported, see HPI, pain, discharge, blurred vision, double vision, itching, photophobia, redness, tearing, other ENT: Denies: no symptoms reported, see HPI, ear pain, ear bleeding, ear discharge, hearing loss, ear ringing, nose pain, nose bleeding, nose congestion, nose discharge, throat pain, throat swelling, voice change, mouth pain, mouth bleeding, mouth swelling, other Respiratory: Denies: no symptoms reported, see HPI, cough, orthopnea, shortness of breath, SOB with exertion, SOB at rest, stridor, wheezing, hemoptysis, pain with breathing, other Cardiovascular: Denies: no symptoms reported, see HPI, chest pain, left arm pain, diaphoresis, lightheadedness, syncope, edema, palpitations, irregular heart rate, other Gastrointestinal: Reports: abdomen distended Genitourinary: Denies: no symptoms reported, see HPI, burning, discharge, dysuria, frequency, flank pain, hematuria, incontinence, pain, decreased urine output, urgency, other Male Genitalia: Denies: no symptoms reported, see HPI, penile discharge, penile sore, testicular pain, testicular swelling, other Neurological: Denies: no symptoms reported, see HPI, speech problem, headache, dizziness, fainting, tingling, left sided numbness, right sided numbness, left sided weakness, right sided weakness, problems walking, unable to move lower ext, unable to move upper ext, petit mal seizures, tonic-clonic seizures, cognitive dysfunction, other Musculoskeletal: Denies: no symptoms reported, see HPI, pain, swelling, back pain, gout, joint pain, joint swelling, muscle pain, muscle swelling, muscle stiffness, neck pain, other Integumentary: Denies: no symptoms reported, see HPI, rash, itching, lesions, lumps, bruise(s), wound(s), laceration(s), dryness, change in color, other Exam Vitals: Vital Signs Date Time Temp Pulse Resp B/P (MAP) Pulse Ox O2 Delivery O2 Flow Rate FiO2 03/26/25 05:57 98.0 85 14 118/77 (91) 95 0 General: General: awake, alert oriented to place, time, and person HEENT: No pallor present, no icterus, moist mucous membranes Neck: No masses and tenderness Resp: Unlabored. Decreased breath sounds at the bases. Cardiovascular: Regular Rate and rhythm, normal S1 and S2 without murmur, rub or gallop Abdomen: Soft and distended, diffuse tenderness, Alcazar sign negative, no organomegaly, no guarding and rigidity, bowel sounds present Neuro: No focal neurological deficits Extremities: No cyanosis,clubbing or edema Skin: Warm and Dry. Diagnostic Data Last Recorded Lab Results: 03/26/2511103/26/25111 Advance Care Planning Advanced Care plannin - 30 Minutes (I spent 17 minutes in discussing various resuscitative measures, the patient chose to be full code.) Additional Plan Assessment This is a 54-year-old male with a history of cirrhosis of liver, hepatitis-C, alcohol use came to the ER with a chief complaint of abdominal distention. Patient is being admitted for decompensated liver cirrhosis with ascites. Plan Decompensated liver cirrhosis Ascites Child De La O class C, MELD Na score 24, 14-15% 90 day mortality Score calculated based on INR from previous visit Chief complaint is abdominal distention Paracentesis T4 for trace ascites during previous admission. Re-evaluate for paracentesis Continued patient's home medication Lasix 40 mg and Aldactone 100 mg. Also continued lactulose 20 g b.i.d. Sodium restricted diet with fluid restriction. Possible hepatic malignancy Abdominal CT during the previous admission showed prominent mesenteric lymph nodes which could be reactive or neoplastic. Did not have a follow up regarding this yet. CBD dilation Gallbladder sludge Hyperbilirubinemia Total bilirubin four point Abdominal ultrasound done today showed gallbladder sludge and CBD of up to [address] done during the previous visit showed distention of gallbladder with possible sludge, CBD dilation up to 13 mm MRCP done during the previous admission showed dilated 8 mm common bile duct. No intraductal filling defects. Please consult surgeon. Pleural effusion Thoracocentesis done during the previous visit showed Currently patient is on room air, abdominal ultrasound showed moderate right pleural effusion Chest x-ray ordered. Patient is currently on Lasix. Macrocytic anemia Secondary to alcohol use Hemoglobin 9.9, MCV 103.4 Started on folic acid, thiamine, multivitamin. Hypoalbuminemia Albumin 2.0 Secondary to chronic liver disease Alcohol abuse Reports last drink was 13 days ago Alcohol levels ordered director outpatient services consulted. Code status: Full code DVT prophylaxis: None GI prophylaxis: Pantoprazole Diet: Sodium restricted diet with fluid restriction Sreedhar Boothe M.D PGY2 Rl Addendum #1 Neuro: - Monitor for signs of hepatic encephalopathy due to cirrhosis and chronic hepatitis C, especially in the context of alcohol use disorder - Continue lactulose to reduce ammonia levels and prevent encephalopathy #2 CV: - Patient HD stable; continue to monitor vitals and assess for hypotensive episodes due to potential variceal bleeding or diuretic therapy #3 Pulm: - Encourage incentive spirometry use to prevent atelectasis - Maintain oxygen saturation >92% #4 GI/Hepatic: Liver cirrhosis and chronic hepatitis C; monitor for progression of disease and potential decompensation, pt may need paracentesis - continue Ceftriaxone - Initiate or continue proton pump inhibitor therapy #5 Renal: - Monitor for acute kidney injury, Lasix, Aldactone - Replete electrolytes as necessary #6 ID: ceftriaxone - Monitor for signs of infection, particularly with risk for spontaneous bacterial peritonitis in ascites #7 Endo: - Maintain blood sugar levels (FS) between 150-180 to prevent stress-induced hyperglycemia #8 Heme/Onc: - Monitor hemoglobin levels due to anemia; aim to keep Hgb >7 g/dL - Assess for thrombocytopenia and ensure platelet count >10,000 ons #9 PPx: - Continue chemical DVT prophylaxis I spent a total of greater than 60 minutes formulating critical care for this patient today. I saw this patient and completed a full visual exam via audio- visual HIPAA compliant technology. Date of Service: Mar 26, 2025 Billing Provider: STORMY MORRIS MD, PRAVAHIKA, ABDIFATAH Mar 26, 2025 06:31 STORMY MORRIS MD Mar 26, 2025 16:20
--- NOTE | 2025-03-26 06:57 | RADIOLOGY REPORT ---
CHEST RADIOGRAPH Indication: pleural effusion Technique: Single frontal view of the chest was obtained Comparison: CT chest dated 03/21/2025. FINDINGS: Lines and Tubes: None Lungs: No focal consolidation. Pleura: Small right pleural effusion. No pneumothorax. Cardiomediastinal contours: Unremarkable Bones: No acute osseous abnormality. IMPRESSION: 1. Small right pleural effusion.
[2025-03-26 07:05] LABS: ETHANOL < 10 MG/DL (<10)
[2025-03-26] MEDS: lactulose 20gm/30ml cup PO SCH (07:56)
[2025-03-26] MEDS: docusate sod 100mg capsule PO SCH (07:56)
[2025-03-26] MEDS: multivitamins, therapeutics tablet PO SCH (07:56)
[2025-03-26] MEDS: potassium Cl 20 mEq SR tablet PO PRN (07:56)
[2025-03-26] MEDS: K and/or MAG REPLACEMENT MC SCH (07:57)
[2025-03-26 09:50] VITALS: BP 113/65; PULSE 77; RESP 16; TEMP 98.7; O2SAT 94
[2025-03-26] MEDS: CefTRIAXone/D5W-Rocephin 1gm 50 ML IV SCH (14:44)
[2025-03-26 18:00] VITALS: BP 94/62; PULSE 89; RESP 17; TEMP 97.9; O2SAT 95
[2025-03-26 20:00] VITALS: RESP 16; O2SAT 95
[2025-03-26 22:00] VITALS: BP 95/55; PULSE 85; RESP 16; TEMP 97.9; O2SAT 93
[2025-03-27 04:15] LABS: CREATININE 0.83 MG/DL (0.60-1.10); TOTAL CARBON DIOXIDE 31.5 MMOL/L (24-32); eCRCL 112 ML/MIN; eGFR > 90 ML/MIN
[2025-03-27 06:36] LABS: INR 2.2 INR
[2025-03-27 07:01] VITALS: BP 95/56; PULSE 68; RESP 17; TEMP 98.1; O2SAT 94
[2025-03-27 07:09] LABS: MEAN PLATELET VOLUME 8.3 FL (7.4-10.4); RED CELL DISTRIBUTION WIDTH 16.5 % (11.5-14.5)
[2025-03-27 08:34] VITALS: RESP 17; O2SAT 94
--- NOTE | 2025-03-27 08:44 | PROGRESS NOTE ---
Daily Progress Note Providers to CC ~ Antibiotic Timeout Antibiotic Ordered?: No Subjective Please refer to the discharge summary. Patient to be discharged today. Objective Vital Signs Date Time Temp Pulse Resp B/P (MAP) Pulse Ox O2 Delivery O2 Flow Rate FiO2 03/27/25 07:01 98.1 68 17 95/56 (69) 94 Room Air 03/26/25 12:52 0.0 Result Diagram: 03/27/25 0613 03/27/25 0312 Coagulation Studies Laboratory Tests Test 03/27/25 06:13 Prothrombin Time 20.6 SECONDS (9.0-12.0) H INR International Normalized Ratio 2.2 INR Coagulation Comments Date of Service: Mar 27, 2025 Billing Provider: DERIAN WHITNEY MD Common Visit Codes: 30616-ZMR/OBS DISCH DAY >30min DERIAN WHITNEY MD Mar 27, 2025 08:44
[2025-03-27 09:45] VITALS: BP 91/55; PULSE 63; RESP 15; TEMP 98.6; O2SAT 93
[2025-03-27] MEDS ORDERED: FURO40TA4 PO (14:50)
--- NOTE | 2025-03-27 14:52 | DISCHARGE SUMMARY ---
Discharge Summary Providers to CC ~ Discharge Summary Admission Diagnosis: ascites Hospital Course DATE OF ADMISSION: 04/25/2025 DATE OF DISCHARGE:04/26/2025 Discharge Diagnosis\Comment: Cirrhosis of the liver with increasing abdominal distention and discomfort Operations\Procedures: Abdominal ultrasound Consultants: IR Complications: None Condition on DC: Stable Continued Medications: Budesonide (Pulmicort) 0.25 Mg/2 Ml Ampul.neb 1 VIAL NEB Q12H PRN for SOB or wheezing for 30 Days, #120 ML 0 Refills Buprenorphine (Brixadi) 128 Mg/0.36 Ml Arianna.syr 128 IM Folic Acid* (Folic Acid*) Y Tab 1 MG PO DAILY, #30 TAB Furosemide (Furosemide) 40 Mg Tablet 40 MG PO DAILY for 30 Days, #30 TAB (This prescription has been renewed) Lactulose (Lactulose) 10 Gram/15 Ml Solution 20 GM PO BID, #60 ML Multivitamin with Folic Acid (Thera Tablet) 400 Mcg Tablet 1 EACH PO DAILY, #30 TAB Nicotine 14 MG Patch* (Habitrol 14 MG Patch*) 1 Each Patch.td24 1 PATCH TD DAILY, #14 PATCH Pantoprazole Sodium (Pantoprazole Sodium) 40 Mg Tablet.dr 40 MG PO BKF, #30 TAB.SR Spironolactone (Spironolactone) 50 Mg Tablet 100 MG PO DAILY@0830, #60 TAB [thiamine tablet] () 100 MG TABLET 100 MG PO DAILY, #30 Discharge Summary: Reason for admission: 54 years old male with a history of cirrhosis of the liver, alcohol abuse, hepatitis-C, ascites, was discharged from this facility on 03/23/2025. On that admission, he was managed for cirrhosis of the liver and gallbladder pathology. Ultrasound during that admission showed trace ascites and paracentesis were deferred. Chest CT was done which showed bilateral pleural effusion and patient underwent a thoracentesis. MRCP done during that visit showed a dilated common bile duct up to 8 mm without any filling defect. Surgeon was consulted and he advised the patient to follow up as outpatient. Patient states that he lost his Lasix and he was contacted to come back to the emergency room. Please refer to admission H&P for more details Hospital course: Patient admitted on the surgery floor in his hospital course as follows. # ascites: After treating with Lasix, his abdominal girth has improved. Patient was evaluated for a paracentesis and there is not enough fluid for anything to be removed. # hyperbilirubinemia: Gallbladder is mildly thickened with a negative Alcazar's sign. CBD measures at 1.5 cm. Trended down. Outpatient follow up with surgery is recommended. # history of cirrhosis of the liver: Patient has a cirrhosis for 20 years secondary to alcohol abuse. He also has hepatitis. Outpatient follow up with GI is recommended # right pleural effusion: Likely hydro hepato thorax: Patient recently underwent thoracentesis. Has no respiratory issues at this time Discharge exam: Examined the patient on the day of discharge. Gen. awake alert oriented asymptomatic HEENT: Normocephalic, atraumatic, extraocular movements are intact, sclera anicteric, conjunctiva pinkish, moist oral mucosa, no rash or ulcers. NECK: Supple, no JVD, trachea midline. CHEST: Clear to auscultation, no wheezes crackles or rhonchi. HEART: Regular rate rhythm, no murmur gallop or rub. ABDOMEN: Soft, nontender, no organomegaly. EXTREMITIES: No cyanosis clubbing or edema. NEURO EXAM: Grossly nonfocal. MUSCULOSKELETAL : No joint swelling or deformities. SKIN: No rash or ulcers noted. Disposition: Home Follow up with PCP and surgery. *Problems/Diagnosis: (1) Ascites Status: Acute Total Time Spent on D/C: > 30 Minutes Date of Service: Mar 27, 2025 Billing Provider: DERIAN WHITNEY MD Common Visit Codes: 95835-ZZS/OBS DISCH DAY >30min DERIAN WHITNEY MD Mar 27, 2025 14:51
--- NOTE | 2025-03-27 16:22 | PROGRESS NOTE ---
Progress Note - Angio Providers to CC ~ Angio Progress Note: Bedside US exam of abdomen shows no ascites therefore no paracentesis was performed. YECENIA STEPHENSON MD Mar 27, 2025 16:22
--- NOTE | 2025-03-27 18:44 | RADIOLOGY REPORT ---
Limited abdominal sonogram: Real-time ultrasound examination at bedside for evaluation of possible ascites was performed. There is no evidence of free fluid collection throughout the peritoneal cavity. Therefore paracentesis procedure was not performed. IMPRESSION: No evidence of significant ascites. Paracentesis therefore not performed.
[2025-03-28] MEDS ORDERED: pantoprazole 40mg Tablet.DR PO SCH (07:30)
== END 2025-03-27 16:00 | disposition home or self-care (01) ==
LOC: ER 20:33 → ED HOLD 03-26 06:22 → SUR 3N 03-26 09:45
PROVIDERS: ADMIT Internal Medicine; ATTEND Internal Medicine
DX: K74.60 Unspecified cirrhosis of liver (principal); J90 Pleural effusion, not elsewhere classified; E88.09 Other disorders of plasma-protein metabolism, not elsewhere classified; R18.8 Other ascites; D53.9 Nutritional anemia, unspecified; F10.10 Alcohol abuse, uncomplicated; K76.82 Hepatic encephalopathy; K83.8 Other specified diseases of biliary tract; R59.1 Generalized enlarged lymph nodes; Y90.9 Presence of alcohol in blood, level not specified; B18.2 Chronic viral hepatitis C; Z79.899 Other long term (current) drug therapy; Z83.3 Family history of diabetes mellitus
CPT/HCPCS: 36415; 71045; 76700; 76705; 80053; 80320; 81001; 82140; 83690; 83735; 85025; 85610; 87081; 87088; 96365; 96375; 99285; G0378; J0696; J1938; J2470; J7040